=== PATIENT | male | born 1940 | race Caucasian/White ===

== ENCOUNTER → 2016-08-08 | Outpatient (CLI) | payer MEDICARE ==
--- NOTE | 2016-08-08 13:48 | XR ---
EXAMINATION TYPE: XR Hip Complete LT DATE OF EXAM: 08/08/2016 COMPARISON: NONE HISTORY: Left hip pain, fall TECHNIQUE: 2 views left hip FINDINGS: Femoral head articulates with the acetabulum. No acute fractures evident. Joint spaces pres erved. IMPRESSION: 1. Normal 2 view left hip
== END | disposition home or self-care (01) ==
LOC: RADXRMAIN 11:22
PROVIDERS: ATTEND Internal Medicine
DX: M25.552 Pain in left hip (principal)
CPT/HCPCS: 73502

== ENCOUNTER → 2016-08-26 | Outpatient (CLI) | payer MEDICARE | END | disposition home or self-care (01) | LOC: LABWHC1 09:25 | PROVIDERS: ATTEND Urology | DX: C61 Malignant neoplasm of prostate (principal) | CPT/HCPCS: 36415; 84153 ==

== ENCOUNTER → 2017-03-10 | Outpatient (CLI) | payer MEDICARE | END | disposition home or self-care (01) | LOC: LABWHC1 07:56 | PROVIDERS: ATTEND Urology | DX: C61 Malignant neoplasm of prostate (principal) | CPT/HCPCS: 36415; 84153 ==

== ENCOUNTER → 2017-08-25 | Outpatient (CLI) | payer MEDICARE | END | disposition home or self-care (01) | LOC: LABWHC1 08:55 | PROVIDERS: ATTEND Urology | DX: C61 Malignant neoplasm of prostate (principal) | CPT/HCPCS: 36415; 84153 ==

== ENCOUNTER → 2017-12-03 | Outpatient (CLI) | payer MEDICARE | END | disposition home or self-care (01) | LOC: LABWHC1 09:01 | PROVIDERS: ATTEND Urology | DX: C61 Malignant neoplasm of prostate (principal) | CPT/HCPCS: 36415; 84153; 84403 ==

== ENCOUNTER 2018-06-23 10:15 | Outpatient (CLI) | payer MEDICARE | END 2018-06-23 10:34 | disposition home or self-care (01) | LOC: LABWHC1 10:15 | PROVIDERS: ATTEND Family Medicine | DX: Z53.9 Procedure and treatment not carried out, unspecified reason (principal) ==

== ENCOUNTER → 2018-06-23 | Outpatient (CLI) | payer MEDICARE | END | disposition home or self-care (01) | LOC: LABWHC1 13:45 | PROVIDERS: ATTEND Urology | DX: C61 Malignant neoplasm of prostate (principal) | CPT/HCPCS: 36415; 84153 ==

== ENCOUNTER → 2018-12-29 | Outpatient (CLI) | payer MEDICARE | END | disposition home or self-care (01) | LOC: LABWHC1 10:46 | PROVIDERS: ATTEND Urology | DX: C61 Malignant neoplasm of prostate (principal) | CPT/HCPCS: 36415; 84153 ==

== ENCOUNTER → 2020-05-01 | Outpatient (CLI) | payer MEDICARE | END | disposition home or self-care (01) | LOC: LABWHC1 08:52 | PROVIDERS: ATTEND Urology | DX: C61 Malignant neoplasm of prostate (principal) | CPT/HCPCS: 36415; 84153 ==

== ENCOUNTER → 2020-05-22 | Outpatient (CLI) | payer MEDICARE ==
[2020-05-22 14:01] LABS: Appearance,Urine Clear (Clear); Bilirubin,Urine Negative (Negative); Blood,Urine Negative (Negative); Color,Urine Light Yellow; Glucose,Urine (UA) 4+ (Negative); Ketones,Urine Negative (Negative); Leukocyte Esterase,Urine Negative (Negative); Nitrite,Urine Negative (Negative); Protein,Urine Negative (Negative); Urobilinogen,Urine <2.0 mg/dL (<2.0)
[2020-05-22 14:07] LABS: Specific Gravity,Urine 1.004 (1.001-1.035)
[2020-05-22 19:44] LABS: HCT 37.9 % (39.6-50.0); MCHC 31.7 g/dL (32.0-37.0); MCV 91.5 fL (80.0-97.0); Mean Platelet Volume 11.6 fL (9.5-12.2); Platelet Count 226 X 10*3/uL (140-440); RBC 4.14 X 10*6/uL (4.40-5.60); RDW 13.8 % (11.5-14.5); WBC 7.95 X 10*3/uL (4.50-10.00)
[2020-05-22 22:57] LABS: Phosphorus 3.7 mg/dL (2.4-5.1)
== END | disposition home or self-care (01) ==
LOC: LABWHC1 12:41
PROVIDERS: ATTEND Internal Medicine
DX: N18.4 Chronic kidney disease, stage 4 (severe) (principal)
CPT/HCPCS: 36415; 81003; 82306; 84100; 85027

== ENCOUNTER → 2020-06-23 | Outpatient (CLI) | payer MEDICARE ==
--- NOTE | 2020-06-23 10:38 | US ---
EXAMINATION TYPE: US kidneys/renal and bladder DATE OF EXAM: 06/23/2020 COMPARISON: US 2017 CLINICAL HISTORY: N18.4 CKD Stage 4. 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 EXAM MEASUREMENTS: Right Kidney: 9.9 x 6.0 x 5.1 cm Left Kidney: 9.7 x 5.0 x 4.5 cm Post Void Residual Volume: 36.0 mL Right Kidney: thin cortex is noted; hyperechoic, parallel, calcified vessel schwartz noted in upper pole ; extracapsular hypoechoic crescent shaped fluid area seen noted bilateral renal indicative of sonogr aphic " sweat sign" for renal failure. Left Kidney: couple of renal cysts seen with larger in lower pole = 2.7 x 2.6 x 2.2cm; thin renal cor kaur is noted Bladder: wnl Bilateral Jets seen: yes Normal Post Void Residual: yes Marked cortical thinning in both kidneys. Couple of benign thin-walled cysts left kidney. No hydronep hrosis bilaterally. The urinary bladder is satisfactorily distended. Bilateral ureteral jets are see n. IMPRESSION: Evidence of chronic medical renal disease. No hydronephrosis seen bilaterally.
== END | disposition home or self-care (01) ==
LOC: RADUSWWP 09:31
PROVIDERS: ATTEND Internal Medicine
DX: N28.89 Other specified disorders of kidney and ureter (principal)
CPT/HCPCS: 76770

== ENCOUNTER → 2020-11-24 | Outpatient (CLI) | payer MEDICARE ==
[2020-11-24 21:46] LABS: African American GFR (CKD) 25.8 (60.0-200.0); Anion Gap 12.2 mmol/L (4.00-12.00); BUN/Creat Ratio 13.39 Ratio (12.00-20.00); Blood Urea Nitrogen 34.4 mg/dL (9.0-27.0); Calcium 9.2 mg/dL (8.7-10.3); Carbon Dioxide 21.7 mmol/L (21.6-31.8); Non-African American GFR(CKD) 22.3 (60.0-200.0); Potassium 4.6 mmol/L (3.5-5.5); Prostate Specific Antigen 10.4 ng/mL (0.00-6.50)
== END | disposition home or self-care (01) ==
LOC: LABWHC1 13:35
PROVIDERS: ATTEND Urology
DX: C61 Malignant neoplasm of prostate (principal); N18.30 Chronic kidney disease, stage 3 unspecified
CPT/HCPCS: 36415; 80048; 84153

== ENCOUNTER → 2021-06-12 | Outpatient (CLI) | payer MEDICARE ==
--- NOTE | 2021-06-12 13:51 | NM ---
EXAMINATION TYPE: NM bone 3 phase DATE OF EXAM: 06/12/2021 COMPARISON: Outside left foot x-ray June 01, 2021 HISTORY: Osteomyelitis per order. Left foot pain for many years involving fifth toe Triple phase bone scintigraphy was performed following the injection of 22.9 mCi Tc 99m MDP. Immedia te images and 4 hours post injection images acquired. Dynamic imaging of the bilateral ankles and fee t. FINDINGS: There is no increased radiotracer uptake to the left ankle or foot versus the opposite right side on dynamic arterial and soft tissue phase imaging. Delayed imaging shows no increased radiotracer uptake in the left ankle or foot with particular attention to the fifth toe at area of patient concern. IMPRESSION: No scintigraphic evidence of acute osteomyelitis in the left ankle or foot.
== END | disposition home or self-care (01) ==
LOC: RADNMMAIN 07:37
PROVIDERS: ATTEND Podiatrist Foot & Ankle Surgery
DX: M79.672 Pain in left foot (principal)
CPT/HCPCS: 78315; A9503

== ENCOUNTER → 2022-07-22 | Outpatient (CLI) | payer MEDICARE ==
[2022-07-22 17:42] LABS: Protein/Creatinine Ratio,Urine 0.111
[2022-07-23 02:20] LABS: % Iron Saturation 20.53; BUN/Creat Ratio 14.71 Ratio; Blood Urea Nitrogen 41.2 mg/dL; Magnesium 2.2 mg/dL; Phosphorus 3.9 mg/dL; Potassium 5.2 mmol/L
[2022-07-23 02:21] LABS: Albumin 4.2 d/dL; Calcium 9.6 mg/dL
[2022-07-23 02:30] LABS: Basophils # (A) 0.05 X 10*3/uL; Basophils % (A) 0.6 %; Eosinophils # (A) 0.21 X 10*3/uL; Eosinophils % (A) 2.5 %; HCT 44.5 %; HGB 14.4 d/dL; Lymphocytes # (A) 1.54 X 10*3/uL; Lymphocytes % (A) 18.1 %; MCH 32.6 pg; MCHC 32.4 d/dL; MCV 100.7 FL; Mean Platelet Volume 11.5 FL; Monocytes # (A) 0.91 X 10*3/uL; Monocytes % (A) 10.7 %; NRBC Per 100 WBC 0 X 10*3/uL; Neutrophils # (A) 5.76 X 10*3/uL; Neutrophils % (A) 67.9 %; Platelet Count 223 X 10*3/uL; RBC 4.42 X 10*6/uL; RDW 12.8 %; WBC 8.49 X 10*3/uL
[2022-07-23 04:44] LABS: Bilirubin,Urine Negative; Blood,Urine Negative; Color,Urine Yellow; Ketones,Urine Negative; Nitrite,Urine Negative; Specific Gravity,Urine 1.012; Urobilinogen,Urine 0.2
[2022-07-23 08:55] LABS: Appearance,Urine Clear (Clear)
== END | disposition home or self-care (01) ==
LOC: LABMAIN 15:44
PROVIDERS: ATTEND Nurse Practitioner Family
DX: N25.81 Secondary hyperparathyroidism of renal origin (principal); N18.4 Chronic kidney disease, stage 4 (severe); D50.9 Iron deficiency anemia, unspecified; E55.9 Vitamin D deficiency, unspecified; M10.9 Gout, unspecified; N39.0 Urinary tract infection, site not specified; R80.9 Proteinuria, unspecified
CPT/HCPCS: 36415; 80048; 81003; 82040; 82306; 82570; 82728; 83540; 83550; 83735; 83970; 84100; 84156; 84550; 85025

== ENCOUNTER → 2022-08-14 | Outpatient (CLI) | payer MEDICARE ==
--- NOTE | 2022-08-14 16:46 | US ---
EXAMINATION TYPE: US kidneys/renal and bladder DATE OF EXAM: 08/14/2022 COMPARISON: Renal ultrasound 06/23/2020, 01/15/2017 CLINICAL INDICATION: Male, 82 years old with history of N18.4 CHRONIC KIDNEY DISEASE, STAGE 4; CKD EXAM MEASUREMENTS: Right Kidney: 9.9x4.7x4.8 cm Left Kidney: 12.0x4.9x5.1 cm Right Kidney: cortical thinning, calcified areas seen throughout, no hydro seen Left Kidney: cortical thinning, calcified areas seen throughout, no hydro seen, largest cyst measures 2.6x2.3x2.6cm Bladder: trabeculated wall, enlarged prostate Bilateral Jets seen: Yes There is no evidence for hydronephrosis at this point in time. Cortical thinning involving both kidne ys with some cortical medullary differentiation still maintained. Left renal simple cyst identified m easuring up to 2.6 cm. Calcified areas are demonstrated within both kidneys which may represent a nod ular calculus versus vascular calcifications. The urinary bladder is anechoic with trabeculated schwartz . Bilateral ureteral jets are seen. Enlarged prostate noted measuring 6.4 x 4.7 cm. IMPRESSION: 1. No hydronephrosis. 2. Findings again compatible with known chronic medical renal disease. 3. Trabeculated urinary bladder with enlarged prostate suggesting chronic outlet obstruction. 4. Bilateral renal calcifications which may represent nonobstructive calculi versus vascular calcific ations.
== END | disposition home or self-care (01) ==
LOC: RADUSWWP 15:00
PROVIDERS: ATTEND Internal Medicine Nephrology
DX: N18.4 Chronic kidney disease, stage 4 (severe) (principal); N40.0 Benign prostatic hyperplasia without lower urinary tract symptoms; N28.89 Other specified disorders of kidney and ureter
CPT/HCPCS: 76770

== ENCOUNTER 2024-03-11 11:40 | Emergency (ER) | payer MEDICARE ==
[2024-03-11 11:49] VITALS: RESP 18; TEMP 97.8
[2024-03-11 12:13] LABS: Basophils % (A) 0 %; Eosinophils # (A) 0.3 k/uL (0-0.7); Eosinophils % (A) 3 %; HCT 44.9 % (39.0-53.0); HGB 14.4 gm/dL (13.0-17.5); Lymphocytes # (A) 1.5 k/uL (1.0-4.8); Lymphocytes % (A) 18 %; MCH 31.9 pg (25.0-35.0); MCHC 32.1 g/dL (31.0-37.0); MCV 99.4 fL (80.0-100.0); Mean Platelet Volume 7.7; Monocytes # (A) 0.7 k/uL (0-1.0); Monocytes % (A) 8 %; Neutrophils % (A) 70 %; Platelet Count 207 k/uL (150-450); RBC 4.52 m/uL (4.30-5.90); RDW 12.8 % (11.5-15.5); WBC 8.6 k/uL (3.8-10.6)
[2024-03-11 12:23] LABS: ALT 17 U/L (4-49); AST 20 U/L (17-59); African American GFR (CKD) 25 (>60 ml/min/1.73 sqM); Albumin 3.7 g/dL (3.5-5.0); Alkaline Phosphatase 54 U/L (38-126); Anion Gap 9 mmol/L; Blood Urea Nitrogen 32 mg/dL (9-20); Calcium 8.9 mg/dL (8.4-10.2); Carbon Dioxide 24 mmol/L (22-30); Chloride 102 mmol/L (98-107); Glucose 207 mg/dL (74-99); Non-African American GFR(CKD) 21 (>60 ml/min/1.73 sqM); Potassium 4.9 mmol/L (3.5-5.1); Sodium 135 mmol/L (137-145); Total Bilirubin 0.7 mg/dL (0.2-1.3); Total Protein 6.6 g/dL (6.3-8.2)
--- NOTE | 2024-03-11 12:25 | XR ---
EXAMINATION TYPE: XR chest 2V DATE OF EXAM: 03/11/2024 12:13 PM COMPARISON: Chest radiographs from 11/18/2011 CLINICAL INDICATION: Male, 83 years old with history of syncope; [facility] TECHNIQUE: XR chest 2V Frontal and lateral views of the chest. FINDINGS: Lungs/Pleura: There is no evidence of pleural effusion, focal consolidation, or pneumothorax. Pulmonary vascularity: Unremarkable. Heart/mediastinum: Cardiomediastinal silhouette is unremarkable. Musculoskeletal: No acute osseous pathology. Midline sternotomy wires are noted. IMPRESSION: No acute cardiopulmonary disease/process. [facility], , 03/11/2024 12:23 PM
--- NOTE | 2024-03-11 12:32 | CT ---
EXAMINATION TYPE: CT brain wo con DATE OF EXAM: 03/11/2024 COMPARISON: CT 2012 CLINICAL INDICATION: Male, 83 years old with history of AMS; PHH, Syncope TECHNIQUE: CT scan of the head is performed without contrast. CT DLP: 1096.4 mGycm Automated exposure control for dose reduction was used. FINDINGS: Exam is suboptimal with motion. There is no definitive acute intracranial hemorrhage or mi dline shift identified. There is moderate diffuse ventricular and sulcal prominence more prominent fr om prior. There is moderate low-attenuation in the periventricular white matter consistent with drum stock clerk [place] small vessel ischemic change prominent from prior. The calvarium is intact. Bilateral aphakia is seen. Mild mucosal thickening involving the visualized portion of the left maxillary sinus. IMPRESSION: No acute intracranial hemorrhage or midline shift. There is moderate diffuse age-relate d cerebral atrophy and chronic small vessel ischemic change now present. [facility], , 03/11/2024 12:29 PM
[2024-03-11 12:33] LABS: INR 1.1 (<1.2); Prothrombin Time 11.6 sec (10.0-12.5)
[2024-03-11 12:36] LABS: Appearance,Urine Clear (Clear); Bilirubin,Urine Negative (Negative); Blood,Urine Negative (Negative); Color,Urine Colorless; Glucose,Urine (UA) 3+ (Negative); Ketones,Urine Negative (Negative); Leukocyte Esterase,Urine Negative (Negative); Nitrite,Urine Negative (Negative); Protein,Urine Negative (Negative); Specific Gravity,Urine 1.009 (1.001-1.035); Urobilinogen,Urine <2.0 mg/dL (<2.0)
[2024-03-11 12:41] LABS: Partial Thromboplastin Time 19.8 sec (22.0-30.0)
--- NOTE | 2024-03-11 13:25 | ED ---
General Adult HPI - General Chief complaint: Syncope Stated complaint: syncope Time Seen by Provider: 03/11/24 11:44 Source: patient, EMS, RN notes reviewed Mode of arrival: EMS Limitations: altered mental status - History of Present Illness Initial comments: 83-year-old male presents emergency department via EMS chief complaint of syncopal episode. Patient brother was having his toenails cut by his son in which she then passed out he did not fall and strike his head. Patient has no complaints currently denies chest pain shortness of breath back pain extremity weakness no nausea vomit no fevers or chills no cough or cold-like symptoms. Patient does have some confusion unclear if this is his baseline there is no current family. - Related Data Home Medications Medication Instructions Recorded Confirmed Furosemide [Lasix] 40 mg PO DAILY 03/11/24 03/11/24 Glimepiride [Amaryl] 1 mg PO DAILY 03/11/24 03/11/24 Ketorolac 0.5% Ophth Soln [Acular 1 drops LEFT EYE DAILY 03/11/24 03/11/24 0.5%] Latanoprost [Latanoprost 0.005%] 1 drop BOTH EYES HS 03/11/24 03/11/24 Losartan [Cozaar] 12.5 mg PO DAILY 03/11/24 03/11/24 Metoprolol Tartrate [Lopressor] 25 mg PO DAILY 03/11/24 03/11/24 Pioglitazone [Actos] 45 mg PO DAILY 03/11/24 03/11/24 calcitrioL [Rocaltrol] 0.25 mcg PO Q7D 03/11/24 03/11/24 methocarbamoL [Robaxin] 500 mg PO Q12H PRN 03/11/24 03/11/24 prednisoLONE ACETATE 1% OPHTH 1 drops LEFT EYE DAILY 03/11/24 03/11/24 [Pred Forte 1%] sitaGLIPtin [Januvia] 100 mg PO DAILY 03/11/24 03/11/24 Allergies Allergy/AdvReac Type Severity Reaction Status Date / Time No Known Allergies Allergy Verified 03/11/24 11:47 Review of Systems ROS Statement: Those systems with pertinent positive or pertinent negative responses have been documented in the HPI. ROS Other: All systems not noted in ROS Statement are negative. Past Medical History Past Medical History: Diabetes Mellitus History of Any Multi-Drug Resistant Organisms: None Reported Past Anesthesia/Blood Transfusion Reactions: No Reported Reaction Past Psychological History: No Psychological Hx Reported Smoking Status: Never smoker Past Drug Use History: None Reported General Exam Limitations: altered mental status General appearance: alert, in no apparent distress Head exam: Present: atraumatic, normocephalic, normal inspection Eye exam: Present: normal appearance, PERRL, EOMI. Absent: scleral icterus, conjunctival injection, periorbital swelling ENT exam: Present: normal exam, mucous membranes moist Neck exam: Present: normal inspection, full ROM. Absent: tenderness, meningism us, lymphadenopathy Respiratory exam: Present: normal lung sounds bilaterally. Absent: respiratory distress, wheezes, rales, rhonchi, stridor Cardiovascular Exam: Present: normal rhythm, bradycardia, normal heart sounds. Absent: systolic murmur, diastolic murmur, rubs, gallop, clicks GI/Abdominal exam: Present: soft, normal bowel sounds. Absent: distended, tenderness, guarding, rebound, rigid Back exam: Present: normal inspection, full ROM. Absent: tenderness Neurological exam: Present: alert, CN II-XII intact, reflexes normal. Absent: oriented X3, motor sensory deficit Course Vital Signs 03/11/24 03/11/24 03/11/24 11:42 13:11 13:24 Temperature 97.8 F Pulse Rate 56 L 50 L Respiratory 18 18 Rate Blood Pressure 134/82 131/68 Blood Pressure 129/74 [Right Arm Sitting] Blood Pressure 113/84 [Right Arm Standing] Blood Pressure 130/62 [Right Arm Supine] O2 Sat by Pulse 98 99 Oximetry EKG Findings - EKG Comments: EKG Findings:: EKG performed at 11: 55 sinus bradycardia with first-degree block rate of 49 ND 224 QRS 92 QT/QTc 421/391 - EKG Results: EKG: interpreted by ERMD Medical Decision Making - Medical Decision Making Was pt. sent in by a medical professional or institution (, PA, CRIME LAB TECHNICIAN, urgent care, hospital, or custodial...) When possible be specific @ -No Did you speak to anyone other than the patient for history (EMS, parent, family, police, friend...)? What history was obtained from this source @ -Family providing past medical history and current baseline Did you review nursing and triage notes (agree or disagree)? Why? @ -I reviewed and agree with nursing and triage notes Were old charts reviewed (outside hosp., previous admission, EMS record, old EKG, old radiological studies, urgent care reports/EKG's, custodial records)? Report findings @ -No old charts were reviewed Differential Diagnosis (chest pain, altered mental status, abdominal pain women, abdominal pain men, vaginal bleeding, weakness, fever, dyspnea, syncope, headache, dizziness, GI bleed, back pain, seizure, CVA, palpatations, mental health, musculoskeletal)? @ -Differential Syncope: Valvular disease, hypertrophic cardiomyopathy, pulmonary embolism, tamponade, tachycardia, bradycardia, VT, hypovolemia, hemorrhage, dissection, anemia, intracranial hemorrhage, seizure, hypoglycemia, carbon monoxide poisoning, this is not meant to be an all-inclusive list. EKG interpreted by me (3pts min.). @ -As above X-rays interpreted by me (1pt min.). @ -Chest 2 view no acute cardiopulmonary process CT interpreted by me (1pt min.). @ -CT brain showing chronic disease no acute process no intracranial hemorrhage U/S interpreted by me (1pt. min.). @ -None done What testing was considered but not performed or refused? (CT, X-rays, U/S, labs)? Why? @ -None What meds were considered but not given or refused? Why? @ -None Did you discuss the management of the patient with other professionals (prof michael i.e. , PA, CRIME LAB TECHNICIAN, lab, RT, psych nurse, hospital social worker, lime kiln operator, teacher, cavalry officer, rn case mgr)? Give summary @ -No Was smoking cessation discussed for >3mins.? @ -No Was critical care preformed (if so, how long)? @ -No Were there social determinants of health that impacted care today? How? (Homelessness, low income, unemployed, alcoholism, drug addiction, transportation, low edu. Level, literacy, decrease access to med. care, senior living, rehab)? @ -No Was there de-escalation of care discussed even if they declined (Discuss DNR or withdrawal of care, Hospice)? DNR status @ -No What co-morbidities impacted this encounter? (DM, HTN, Smoking, COPD, CAD, Cancer, CVA, ARF, Chemo, Hep., AIDS, mental health diagnosis, sleep apnea, morbid obesity)? @ -None Was patient admitted / discharged? Hospital course, mention meds given and route, prescriptions, significant lab abnormalities, going to OR and other pertinent info. @ -Discharge patient's family was updated, they did comment states patient is at his baseline they have no concerns. Patient has chronic kidney disease. Patient has no complaints himself will be discharged in stable condition. Undiagnosed new problem with uncertain prognosis? @ -No Drug Therapy requiring intensive monitoring for toxicity (Heparin, Nitro, Insuli n, Cardizem)? @ -No Were any procedures done? @ -No Diagnosis/symptom? @ -syncope, dementia chronic kidney disease Acute, or Chronic, or Acute on Chronic? @ -acute Uncomplicated (without systemic symptoms) or Complicated (systemic symptoms)? @ -complicated Side effects of treatment? @ -No Exacerbation, Progression, or Severe Exacerbation? @ -No Poses a threat to life or bodily function? How? (Chest pain, USA, VT, pneumonia, PE, COPD, DKA, ARF, appy, cholecystitis, CVA, Diverticulitis, Homicidal, Suicidal, threat to staff... and all critical care pts) @ -No - Lab Data Result diagrams: 03/11/24 11:55 03/11/24 11:55 Lab Results 03/11/24 03/11/24 03/11/24 Range/Units 11:55 11:55 11:55 WBC 8.6 (3.8-10.6) k/uL RBC 4.52 (4.30-5.90) m/uL Hgb 14.4 (13.0-17.5) gm/dL Hct 44.9 (39.0-53.0) % MCV 99.4 (80.0-100.0) fL MCH 31.9 (25.0-35.0) pg MCHC 32.1 (31.0-37.0) g/dL RDW 12.8 (11.5-15.5) % Plt Count 207 (150-450) k/uL MPV 7.7 Neutrophils % 70 % Lymphocytes % 18 % Monocytes % 8 % Eosinophils % 3 % Basophils % 0 % Neutrophils # 6.0 (1.3-7.7) k/uL Lymphocytes # 1.5 (1.0-4.8) k/uL Monocytes # 0.7 (0-1.0) k/uL Eosinophils # 0.3 (0-0.7) k/uL Basophils # 0.0 (0-0.2) k/uL PT 11.6 (10.0-12.5) sec INR 1.1 (<1.2) APTT 19.8 L (22.0-30.0) sec Sodium 135 L (137-145) mmol/L Potassium 4.9 (3.5-5.1) mmol/L Chloride 102 (98-107) mmol/L Carbon Dioxide 24 (22-30) mmol/L Anion Gap 9 mmol/L BUN 32 H (9-20) mg/dL Creatinine 2.61 H (0.66-1.25) mg/dL Est GFR (CKD-EPI)AfAm 25 (>60 ml/min/1.73 sqM) Est GFR (CKD-EPI)NonAf 21 (>60 ml/min/1.73 sqM) Glucose 207 H (74-99) mg/dL Calcium 8.9 (8.4-10.2) mg/dL Magnesium 2.0 (1.6-2.3) mg/dL Total Bilirubin 0.7 (0.2-1.3) mg/dL AST 20 (17-59) U/L ALT 17 (4-49) U/L Alkaline Phosphatase 54 (38-126) U/L Troponin I (0.000-0.034) ng/mL Total Protein 6.6 (6.3-8.2) g/dL Albumin 3.7 (3.5-5.0) g/dL Urine Color Urine Appearance (Clear) Urine pH (5.0-8.0) Ur Specific [place] (1.001-1.035) Urine Protein (Negative) Urine Glucose (UA) (Negative) Urine Ketones (Negative) Urine Blood (Negative) Urine Nitrite (Negative) Urine Bilirubin (Negative) Urine Urobilinogen (<2.0) mg/dL Ur Leukocyte Esterase (Negative) 03/11/24 03/11/24 Range/Units 11:55 12:21 WBC (3.8-10.6) k/uL RBC (4.30-5.90) m/uL Hgb (13.0-17.5) gm/dL Hct (39.0-53.0) % MCV (80.0-100.0) fL MCH (25.0-35.0) pg MCHC (31.0-37.0) g/dL RDW (11.5-15.5) % Plt Count (150-450) k/uL MPV Neutrophils % % Lymphocytes % % Monocytes % % Eosinophils % % Basophils % % Neutrophils # (1.3-7.7) k/uL Lymphocytes # (1.0-4.8) k/uL Monocytes # (0-1.0) k/uL Eosinophils # (0-0.7) k/uL Basophils # (0-0.2) k/uL PT (10.0-12.5) sec INR (<1.2) APTT (22.0-30.0) sec Sodium (137-145) mmol/L Potassium (3.5-5.1) mmol/L Chloride (98-107) mmol/L Carbon Dioxide (22-30) mmol/L Anion Gap mmol/L BUN (9-20) mg/dL Creatinine (0.66-1.25) mg/dL Est GFR (CKD-EPI)AfAm (>60 ml/min/1.73 sqM) Est GFR (CKD-EPI)NonAf (>60 ml/min/1.73 sqM) Glucose (74-99) mg/dL Calcium (8.4-10.2) mg/dL Magnesium (1.6-2.3) mg/dL Total Bilirubin (0.2-1.3) mg/dL AST (17-59) U/L ALT (4-49) U/L Alkaline Phosphatase (38-126) U/L Troponin I <0.012 (0.000-0.034) ng/mL Total Protein (6.3-8.2) g/dL Albumin (3.5-5.0) g/dL Urine Color Colorless Urine Appearance Clear (Clear) Urine pH 5.0 (5.0-8.0) Ur Specific [place] 1.009 (1.001-1.035) Urine Protein Negative (Negative) Urine Glucose (UA) 3+ H (Negative) Urine Ketones Negative (Negative) Urine Blood Negative (Negative) Urine Nitrite Negative (Negative) Urine Bilirubin Negative (Negative) Urine Urobilinogen <2.0 (<2.0) mg/dL Ur Leukocyte Esterase Negative (Negative) Disposition Clinical Impression: Syncope, Dementia, CKD (chronic kidney disease) Disposition: HOME SELF-CARE Condition: Stable Instructions (If sedation given, give patient instructions): Syncope (ED) Additional Instructions: Please return to the Emergency Department if symptoms worsen or any other concerns. Is patient prescribed a controlled substance at d/c from ED?: No Referrals: Luciano Cooney MD [Primary Care Provider] - 1-2 days Time of Disposition: 13:59
[2024-03-11 13:36] VITALS: PULSE 50
[2024-03-11 14:10] VITALS: BP 123/77
== END 2024-03-11 14:09 | disposition home or self-care (01) ==
LOC: EC 11:40
DX: N18.9 Chronic kidney disease, unspecified (principal); R55 Syncope and collapse; F03.90 Unspecified dementia, unspecified severity, without behavioral disturbance, psychotic disturbance, mood disturbance, and anxiety
CPT/HCPCS: 36415; 70450; 71046; 80053; 81003; 83735; 84484; 85025; 85610; 85730; 93005; 99285

== ENCOUNTER 2024-04-29 18:03 | Inpatient (IN) | payer MEDICARE ==
--- NOTE | 2024-04-29 18:15 | ED ---
General Adult HPI - General Stated complaint: left side weakness Time Seen by Provider: 04/29/24 18:11 Source: patient, family Mode of arrival: wheelchair Limitations: no limitations - History of Present Illness Initial comments: Patient is an 84-year-old male presenting to the emergency department with left- sided weakness. Onset of symptoms was around 3 or 4 this morning. Patient was well when he went to bed last night. Patient family has noticed left-sided facial weakness and left arm and left leg weakness. No confusion. Patient does have slurred speech. Patient has a difficult time describing his symptoms and majority of history comes from family. - Related Data Home Medications Medication Instructions Recorded Confirmed Glimepiride [Amaryl] 1 mg PO DAILY 03/11/24 04/29/24 Ketorolac 0.5% Ophth Soln [Acular 1 drops LEFT EYE DAILY 03/11/24 04/29/24 0.5%] Latanoprost [Latanoprost 0.005%] 1 drop BOTH EYES HS 03/11/24 04/29/24 Losartan [Cozaar] 12.5 mg PO DAILY 03/11/24 04/29/24 Metoprolol Tartrate [Lopressor] 25 mg PO DAILY 03/11/24 04/29/24 Pioglitazone [Actos] 45 mg PO DAILY 03/11/24 04/29/24 calcitrioL [Rocaltrol] 0.25 mcg PO TH 03/11/24 04/29/24 methocarbamoL [Robaxin] 500 mg PO Q12H PRN 03/11/24 04/29/24 prednisoLONE ACETATE 1% OPHTH 1 drop LEFT EYE DAILY 03/11/24 04/29/24 [Pred Forte 1%] sitaGLIPtin [Januvia] 100 mg PO DAILY 03/11/24 04/29/24 Allergies Allergy/AdvReac Type Severity Reaction Status Date / Time No Known Allergies Allergy Verified 04/29/24 19:32 Review of Systems ROS Statement: Those systems with pertinent positive or pertinent negative responses have been documented in the HPI. ROS Other: All systems not noted in ROS Statement are negative. Constitutional: Denies: fever Eyes: Denies: eye pain ENT: Denies: ear pain Respiratory: Denies: cough Cardiovascular: Denies: chest pain Endocrine: Denies: fatigue Gastrointestinal: Denies: abdominal pain Musculoskeletal: Denies: back pain Neurological: Reports: as per HPI, weakness. Denies: headache Past Medical History Past Medical History: Diabetes Mellitus History of Any Multi-Drug Resistant Organisms: None Reported Past Anesthesia/Blood Transfusion Reactions: No Reported Reaction Past Psychological History: No Psychological Hx Reported Smoking Status: Never smoker Past Drug Use History: None Reported General Exam Limitations: no limitations General appearance: alert, in no apparent distress Head exam: Present: normocephalic Eye exam: Present: normal appearance, PERRL, EOMI ENT exam: Present: normal oropharynx Neck exam: Present: normal inspection Respiratory exam: Present: normal lung sounds bilaterally Cardiovascular Exam: Present: regular rate, normal rhythm GI/Abdominal exam: Present: soft. Absent: tenderness Extremities exam: Present: normal inspection Neurological exam: Present: alert Expanded Neurological exam: Present: other (Slurred speech) Patient oriented to: Present: person, place. Absent: time Cranial nerves: EOM's Intact: Normal, Facial Sensation: Normal, Facial Palsy with Forehead Movement: Abnormal Left (Left facial weakness that does not involve the forehead) Sensory exam: Upper Extremity Light Touch: Normal, Lower Extremity Light Touch: Normal Motor strength exam: RUE: 5, LUE: 5, RLE: 4, LLE: 2/1 Eye Response: (4) open spontaneously Motor Response: (6) obeys commands Verbal Response: (4) confused conversation Psychiatric exam: Present: normal affect, normal mood Skin exam: Present: normal color Course Vital Signs 04/29/24 04/29/24 04/29/24 18:10 18:34 18:41 Temperature 98.4 F Pulse Rate 83 68 Respiratory 18 15 14 Rate Blood Pressure 143/85 141/70 O2 Sat by Pulse 99 97 Oximetry 04/29/24 18:57 Temperature Pulse Rate 77 Respiratory 15 Rate Blood Pressure 128/66 O2 Sat by Pulse 99 Oximetry EKG Findings - EKG Results: EKG: interpreted by ERMD (First-degree AV block with a TX of 226.), sinus rhythm, normal axis, normal QRS, normal ST/T Medical Decision Making - Medical Decision Making Case was discussed with neuro Dr. Serrato who agrees not a TNK patient. Risks are felt to outweigh the benefit. Secondary to onset greater than 4.5 hours. Was pt. sent in by a medical professional or institution (, PA, HOSPITAL HOUSEKEEPER, urgent care, hospital, or senior living...) When possible be specific @ -No Did you speak to anyone other than the patient for history (EMS, parent, family, police, friend...)? What history was obtained from this source @ -Family is present and provides history as patient is a poor historian Did you review nursing and triage notes (agree or disagree)? Why? @ -I reviewed and agree with nursing and triage notes Were old charts reviewed (outside hosp., previous admission, EMS record, old EKG, old radiological studies, urgent care reports/EKG's, senior living records)? Report findings @ -No old charts were reviewed Differential Diagnosis (chest pain, altered mental status, abdominal pain women, abdominal pain men, vaginal bleeding, weakness, fever, dyspnea, syncope, headache, dizziness, GI bleed, back pain, seizure, CVA, palpatations, mental health, musculoskeletal)? @ -Differential Weakness: Hypoglycemia, shock, sepsis, hyponatremia, anemia, infection, MD, ETOH, adverse medicine reaction, overdose, stroke, this is not meant to be an all-inclusive list. EKG interpreted by me (3pts min.). @ -As above X-rays interpreted by me (1pt min.). @ -Chest x-ray does not reveal acute abnormality CT interpreted by me (1pt min.). @ -CT scan of the brain has concern for infarct right internal capsule U/S interpreted by me (1pt. min.). @ -None done What testing was considered but not performed or refused? (CT, X-rays, U/S, labs)? Why? @ -None What meds were considered but not given or refused? Why? @ -None Did you discuss the management of the patient with other professionals (professionals i.e. , PA, HOSPITAL HOUSEKEEPER, lab, RT, psych nurse, social work professor, urology nurse, teacher, commissioned police officer, case management director)? Give summary @ -Sound physician Dr. Huff to admit covering Dr. Almodovar Was smoking cessation discussed for >3mins.? @ -No Was critical care preformed (if so, how long)? @ -31 minutes critical care time Were there social determinants of health that impacted care today? How? (Homelessness, low income, unemployed, alcoholism, drug addiction, transportation, low edu. Level, literacy, decrease access to med. care, snf, rehab)? @ -No Was there de-escalation of care discussed even if they declined (Discuss DNR or withdrawal of care, Hospice)? DNR status @ -No What co-morbidities impacted this encounter? (DM, HTN, Smoking, COPD, CAD, Cancer, CVA, ARF, Chemo, Hep., AIDS, mental health diagnosis, sleep apnea, morbid obesity)? @ -None Was patient admitted / discharged? Hospital course, mention meds given and route, prescriptions, significant lab abnormalities, going to OR and other pertinent info. @ -Patient presents with left-sided deficits. Not a candidate for TNKase secondary to greater than 4.5 hours. Patient will be admitted with neurology consult. Patient reevaluated. Patient and family updated. Admission orders written. Undiagnosed new problem with uncertain prognosis? @ -No Drug Therapy requiring intensive monitoring for toxicity (Heparin, Nitro, Insulin, Cardizem)? @ -No Were any procedures done? @ -No Diagnosis/symptom? @ -CVA Acute, or Chronic, or Acute on Chronic? @ -Acute Uncomplicated (without systemic symptoms) or Complicated (systemic symptoms)? @ -Default Side effects of treatment? @ -No Exacerbation, Progression, or Severe Exacerbation? @ -No Poses a threat to life or bodily function? How? (Chest pain, USA, MD, pneumonia, PE, COPD, DKA, ARF, appy, cholecystitis, CVA, Diverticulitis, Homicidal, Suicidal, threat to staff... and all critical care pts) @ -Threat to neurological function - Lab Data Result diagrams: 04/29/24 18:34 04/29/24 18:34 Lab Results 04/29/24 04/29/24 04/29/24 Range/Units 18:34 18:34 18:44 WBC 10.3 (3.8-10.6) k/uL RBC 4.70 (4.30-5.90) m/uL Hgb 14.7 (13.0-17.5) gm/dL Hct 46.5 (39.0-53.0) % MCV 99.0 (80.0-100.0) fL MCH 31.3 (25.0-35.0) pg MCHC 31.6 (31.0-37.0) g/dL RDW 13.4 (11.5-15.5) % Plt Count 231 (150-450) k/uL MPV 8.6 Neutrophils % 75 % Lymphocytes % 14 % Monocytes % 6 % Eosinophils % 3 % Basophils % 0 % Neutrophils # 7.8 H (1.3-7.7) k/uL Lymphocytes # 1.5 (1.0-4.8) k/uL Monocytes # 0.6 (0-1.0) k/uL Eosinophils # 0.3 (0-0.7) k/uL Basophils # 0.0 (0-0.2) k/uL Sodium 135 L (137-145) mmol/L Potassium 4.7 (3.5-5.1) mmol/L Chloride 102 (98-107) mmol/L Carbon Dioxide 21 L (22-30) mmol/L Anion Gap 12 mmol/L BUN 41 H (9-20) mg/dL Creatinine 2.61 H (0.66-1.25) mg/dL Est GFR (CKD-EPI)AfAm 25 (>60 ml/min/1.73 sqM) Est GFR (CKD-EPI)NonAf 21 (>60 ml/min/1.73 sqM) Glucose 191 H (74-99) mg/dL POC Glucose (mg/dL) 176 H (70-110) mg/dL POC Glu School Administrator ID [place] Alexandra Calcium 9.4 (8.4-10.2) mg/dL Total Bilirubin 0.9 (0.2-1.3) mg/dL AST 27 (17-59) U/L ALT 21 (4-49) U/L Alkaline Phosphatase 58 (38-126) U/L Creatine Kinase 217 H (55-170) U/L Total Protein 7.6 (6.3-8.2) g/dL Albumin 4.3 (3.5-5.0) g/dL Disposition Clinical Impression: Cerebrovascular accident (CVA) Disposition: ADMITTED IP TO THIS HOSP Condition: Serious Is patient prescribed a controlled substance at d/c from ED?: No Referrals: Luciano Cooney MD [Primary Care Provider] - 1-2 days Time of Disposition: 20:21
[2024-04-29 18:46] LABS: Glucose,Whole Blood 176 mg/dL (70-110)
[2024-04-29 18:47] LABS: Basophils % (A) 0 %; Eosinophils # (A) 0.3 k/uL (0-0.7); Eosinophils % (A) 3 %; HCT 46.5 % (39.0-53.0); HGB 14.7 gm/dL (13.0-17.5); Lymphocytes # (A) 1.5 k/uL (1.0-4.8); Lymphocytes % (A) 14 %; MCH 31.3 pg (25.0-35.0); MCHC 31.6 g/dL (31.0-37.0); Mean Platelet Volume 8.6; Monocytes # (A) 0.6 k/uL (0-1.0); Monocytes % (A) 6 %; Neutrophils # (A) 7.8 k/uL (1.3-7.7); Neutrophils % (A) 75 %; Platelet Count 231 k/uL (150-450); RDW 13.4 % (11.5-15.5); WBC 10.3 k/uL (3.8-10.6)
--- NOTE | 2024-04-29 18:51 | CT ---
EXAMINATION TYPE: CT brain wo con DATE OF EXAM: 04/29/2024 COMPARISON: NONE CLINICAL INDICATION: Male, 84 years old with history of Neuro deficit, acute, stroke suspected, TECHNIQUE: CT scan of the head is performed without contrast. CT DLP: 1220 mGycm. Automated Exposure Control for Dose Reduction was Utilized. FINDINGS: There is no acute intracranial hemorrhage or midline shift identified. There is moderate diffuse ventricular and sulcal prominence redemonstrated. There is moderate low-attenuation in the p eriventricular white matter redemonstrated. There is however new 1.6 cm vague area of low density in the right internal capsule extending to the central basal ganglia axial images 22 through 25. Promine nt soft tissue density consistent with cerumen in the left external auditory canal is redemonstrated. The paranasal sinuses are clear. Bilateral aphakia is redemonstrated. IMPRESSION: Probable evolving acute infarct right Internal capsule extending into the central basal ganglia. Consider MRI for confirmation. No acute intracranial hemorrhage or midline shift. [facility], , 04/29/2024 6:48 PM
--- NOTE | 2024-04-29 18:57 | CT ---
EXAMINATION TYPE: CT angio head neck DATE OF EXAM: 04/29/2024 COMPARISON: NONE CLINICAL INDICATION: Male, 84 years old with history of Neuro deficit, acute, stroke suspected, left sided facial droop and weakness. fall x few days ago., TECHNIQUE: CTA scan of the head and neck is performed with IV Contrast, patient injected with 65ml m L of Isovue 370, axial images are obtained, coronal and sagittal reformatted images are reviewed. 3D reconstructed images are created on an independent workstation and reviewed. NASCET criteria was used in interpretation of this exam? CT DLP: 540.2 mGycm. Automated Exposure Control for Dose Reduction was Utilized. FINDINGS: HEAD: Patent bilateral posterior communicating arteries . Hypoplastic right A1 segment with filling of the right A2 segment due to patent anterior communicating artery. No aneurysm is evident. Dural sinuses: Patent. CTA NECK: Right Carotid System: The common carotid artery and external carotid artery are patent. The carotid bifurcation demonstrate s no evidence of hemodynamically significant stenosis. Mild to moderate peripheral plaque in the dist al common carotid artery and carotid bulb extending into the proximal internal carotid artery is seen The remaining portions of the internal carotid artery demonstrate normal size without significant na rrowing. Moderate to severe calcified plaque distally is present. Difficult to exclude significant st enosis. Left Carotid System: The common carotid artery and external carotid artery are patent. The carotid bifurcation demonstrate s no evidence of hemodynamically significant stenosis. The remaining portions of the internal carotid artery demonstrate normal size without significant narrowing. Vertebral arteries are patent without evidence hemodynamically significant stenosis. Right vertebral artery is dominant. There is a three-vessel aortic arch. The origins of the great vessels are patent. No evidence of hemo dynamically significant stenosis. Post-CABG changes are partially imaged. There are large anterior osteophytes in the mid to lower cerv ical spine. IMPRESSION: No evidence of large vessel occlusion or aneurysm at the level of [place]. No any evidence o f significant stenosis at the carotid bifurcations. Severe calcified plaque distal right internal c arotid artery. Cannot exclude significant stenosis at this level. [facility], , 04/29/2024 6:54 PM
[2024-04-29 19:01] LABS: ALT 21 U/L (4-49); AST 27 U/L (17-59); African American GFR (CKD) 25 (>60 ml/min/1.73 sqM); Albumin 4.3 g/dL (3.5-5.0); Alkaline Phosphatase 58 U/L (38-126); Anion Gap 12 mmol/L; Blood Urea Nitrogen 41 mg/dL (9-20); Calcium 9.4 mg/dL (8.4-10.2); Carbon Dioxide 21 mmol/L (22-30); Chloride 102 mmol/L (98-107); Creatine Kinase 217 U/L (55-170); Glucose 191 mg/dL (74-99); Non-African American GFR(CKD) 21 (>60 ml/min/1.73 sqM); Potassium 4.7 mmol/L (3.5-5.1); Sodium 135 mmol/L (137-145); Total Bilirubin 0.9 mg/dL (0.2-1.3); Total Protein 7.6 g/dL (6.3-8.2)
[2024-04-29] MEDS: SODIUM CHLORIDE 0.9% 500 ML 500 ML IV STA (19:42)
--- NOTE | 2024-04-29 19:53 | XR ---
EXAMINATION TYPE: XR chest 2V DATE OF EXAM: 04/29/2024 CLINICAL INDICATION: Male, 84 years old with history of altered mental status, TECHNIQUE: Frontal and lateral views of the chest are obtained. COMPARISON: Chest x-ray March 11, 2024 FINDINGS: Overlying Sternal wires and mediastinal clips are redemonstrated. Persistent cardiomegaly. There is no focal air space opacity, pleural effusion, or pneumothorax seen. Bridging osteophytes in the thoracic spine again seen. IMPRESSION: Cardiomegaly without acute pulmonary process. [facility], , 04/29/2024 7:50 PM
[2024-04-29] MEDS: SODIUM CHLORIDE 0.9% 1,000 ML IV STA (20:16)
[2024-04-29 20:38] LABS: Partial Thromboplastin Time 24.6 sec (22.0-30.0); Prothrombin Time 11.2 sec (10.0-12.5)
[2024-04-29] MEDS: SODIUM CHLORIDE 0.9% 1,000 ML IV SCH (22:08)
[2024-04-29] MEDS: LATANOPROST 0.005% OPHTH DROPS 2.5 ML BTL BOTH EYES SCH (22:08)
[2024-04-29] MEDS: ATORVASTATIN 80 MG TAB PO SCH (22:08)
[2024-04-29] MEDS: methocarbamoL 500 MG TAB PO PRN (22:09)
[2024-04-29] MEDS: ASPIRIN 325 MG TAB PO STA (22:09)
[2024-04-29 22:13] LABS: Glucose,Whole Blood 121 mg/dL (70-110)
--- NOTE | 2024-04-29 23:42 | P.HPIM ---
History of Present Illness H&P Date: 04/29/24 Patient is a 84-year-old male with type 2 diabetes, CAD s/p CABG presenting with left-sided weakness. Patient accompanied by family, majority of history obtained from family. They state that his onset of symptoms were as around 34 AM this morning. Patient's son says that he normally gets up in the middle the night to urinate, and was at that time where he noticed some left-sided facial weakness and left arm and leg weakness along with slurred speech. Denies any confusion or any previous hist ory of stroke. Patient denies any fever, chills, headache, dizziness, chest pain, heart palpitation, shortness of breath, nausea, vomiting, diarrhea, abdominal pain, trauma. EKG independently interpreted displaying sinus rhythm with first-degree AV block, rate 70 bpm, QTc 391 ms, HI interval 226 ms CXR independently interpreted displaying cardiomegaly, no acute cardiopulmonary process CT angio head and neck displaying no evidence of large vessel occlusion or aneurysm at the level of the [place], no evidence of significant stenosis at the carotid bifurcations, severe calcified plaque distal mid right internal carotid artery Brain CT displaying probable evolving acute infarct right internal capsule extending to the central basal ganglia, no acute intracranial hemorrhage or midline shift T98.4 F, HI 83, RR 18, BP 143/85, O2 sat 99% on room air Review of systems: Pertinent positives and negatives as discussed in HPI, a complete review of systems was performed and all other systems are negative. Physical examination: Vital signs reviewed General: non toxic, no distress, appears at stated age, well nourished Derm: no unusual rashes/lesions, warm Head: atraumatic, normocephalic, symmetric Eyes: EOMI, anicteric sclera, pupils equal round reactive to light ENT: Nose and ears atraumatic Mouth: no lip lesion, mucus membranes moist Cardiovascular: S1S2 reg, no murmur, positive dorsalis pedis pulse bilateral, no edema Lungs: CTA bilateral, no rhonchi, no rales, no accessory muscle use Abdominal: soft, nontender to palpation, no guarding Neuro: Left-sided facial palsy that does not involve the forehead, left upper and lower extremity weakness, slurred speech Psych: Alert, oriented to person, place, and time Assessment/Plan: Patient is a 84-year-old male with type 2 diabetes, CAD s/p CABG presenting with left-sided weakness and slurred speech secondary to acute CVA. ED documentation reviewed and case discussed with ED provider. Discussed with patient and son. The patient is admitted with an anticipated greater than 2 midnight stay for evaluation of CVA. Anticipated discharge place pending clinical course. #. Left-sided weakness and slurred speech secondary to acute CVA NIH score 6-[address] displaying probable evolving acute infarct right internal capsule extending to the central basal ganglia, no acute intracranial hemorrhage or midline shift Continue with aspirin 81 mg p.o. daily Atorvastatin 80 mg p.o. at bedtime no plavix , await neurology input , due to high NIH TSH and lipid panel ordered Echo ordered MRI brain pending neuro recommendations Neurochecks Cardiac telemetry PT/OT consult Speech therapy consult Neurology consult if worsening mental status , consider repeat CT brain due to evolving infarct to rule out hemorrhagic conversion allow permissive hypertension keep <220/120 #. Fmt-[id number]-[id number] diabetes Insulin SQ sliding scale Accu-Cheks ACHS Monitor for hypoglycemia Hold home oral medication #. CAD #. Hypertension Continue metoprolol 25 mg p.o. daily to avoid rebound tachycardia Hold Cozaar permissive hypertension #. Chronic kidney disease stage IV Patient at baseline creatinine monitor urine output NSS 75 cc/hr DVT prophylaxis: SCDs, avoid pharmacologic DVT PPX for 24-48 hrs due to evolving infarct to reduce risk of hemorrhagic conversion Hailee White MD PGY-1 IM Dictation was produced using [employer] dictation software. please excuse any grammatical, word or spelling errors. I have seen and evaluated the patient today. I Discussed the case with the resident and agree with the resident's findings I edited the assessment and plan as necessary as documented in the resident's note. Past Medical History Past Medical History: Diabetes Mellitus History of Any Multi-Drug Resistant Organisms: None Reported Additional Past Surgical History / Comment(s): triple bypass Past Anesthesia/Blood Transfusion Reactions: No Reported Reaction Past Psychological History: No Psychological Hx Reported Smoking Status: Never smoker Past Drug Use History: None Reported Medications and Allergies Home Medications Medication Instructions Recorded Confirmed Type Glimepiride [Amaryl] 1 mg PO DAILY 03/11/24 04/29/24 History Ketorolac 0.5% Ophth Soln [Acular 1 drops LEFT EYE DAILY 03/11/24 04/29/24 History 0.5%] Latanoprost [Latanoprost 0.005%] 1 drop BOTH EYES HS 03/11/24 04/29/24 History Losartan [Cozaar] 12.5 mg PO DAILY 03/11/24 04/29/24 History Metoprolol Tartrate [Lopressor] 25 mg PO DAILY 03/11/24 04/29/24 History Pioglitazone [Actos] 45 mg PO DAILY 03/11/24 04/29/24 History calcitrioL [Rocaltrol] 0.25 mcg PO TH 03/11/24 04/29/24 History methocarbamoL [Robaxin] 500 mg PO Q12H PRN 03/11/24 04/29/24 History prednisoLONE ACETATE 1% OPHTH 1 drop LEFT EYE DAILY 03/11/24 04/29/24 History [Pred Forte 1%] sitaGLIPtin [Januvia] 100 mg PO DAILY 03/11/24 04/29/24 History Allergies Allergy/AdvReac Type Severity Reaction Status Date / Time No Known Allergies Allergy Verified 04/29/24 19:32 Physical Exam Vitals: Vital Signs Temp Pulse Resp BP Pulse Ox 04/29/24 18:57 77 15 128/66 99 04/29/24 18:41 68 14 141/70 97 04/29/24 18:34 15 04/29/24 18:10 98.4 F 83 18 143/85 99 Intake and Output 04/29/24 04/29/24 04/29/24 06:59 14:59 22:59 Other: Weight 92.986 kg Results CBC & Chem 7: 04/29/24 18:34 04/29/24 18:34 Labs: Abnormal Lab Results - Last 24 Hours (Table) 04/29/24 04/29/24 04/29/24 Range/Units 18:34 18:34 18:44 Neutrophils # 7.8 H (1.3-7.7) k/uL Sodium 135 L (137-145) mmol/L Carbon Dioxide 21 L (22-30) mmol/L BUN 41 H (9-20) mg/dL Creatinine 2.61 H (0.66-1.25) mg/dL Glucose 191 H (74-99) mg/dL POC Glucose (mg/dL) 176 H (70-110) mg/dL Creatine Kinase 217 H (55-170) U/L
[2024-04-30 07:30] LABS: Glucose,Whole Blood 147 mg/dL (70-110)
[2024-04-30] MEDS: INSULIN LISPRO (HumaLOG) 100 UNIT/ML 10 mL VL SQ SCH (07:31)
[2024-04-30 08:17] LABS: Basophils # (A) 0.1 k/uL (0-0.2); Basophils % (A) 1 %; Eosinophils # (A) 0.3 k/uL (0-0.7); Eosinophils % (A) 3 %; HCT 42.5 % (39.0-53.0); Lymphocytes % (A) 11 %; MCH 30.8 pg (25.0-35.0); MCHC 30.7 g/dL (31.0-37.0); MCV 100.3 fL (80.0-100.0); Mean Platelet Volume 7.7; Monocytes # (A) 0.6 k/uL (0-1.0); Monocytes % (A) 7 %; Neutrophils # (A) 6.8 k/uL (1.3-7.7); Neutrophils % (A) 76 %; Platelet Count 192 k/uL (150-450); RBC 4.24 m/uL (4.30-5.90); RDW 13.1 % (11.5-15.5)
[2024-04-30 08:33] LABS: ALT 18 U/L (4-49); AST 24 U/L (17-59); African American GFR (CKD) 26 (>60 ml/min/1.73 sqM); Albumin 3.4 g/dL (3.5-5.0); Alkaline Phosphatase 54 U/L (38-126); Anion Gap 8 mmol/L; Blood Urea Nitrogen 37 mg/dL (9-20); Calcium 8.8 mg/dL (8.4-10.2); Carbon Dioxide 22 mmol/L (22-30); Chloride 104 mmol/L (98-107); Glucose 145 mg/dL (74-99); Magnesium 2.1 mg/dL (1.6-2.3); Non-African American GFR(CKD) 22 (>60 ml/min/1.73 sqM); Potassium 4.1 mmol/L (3.5-5.1); Sodium 134 mmol/L (137-145); Total Bilirubin 0.8 mg/dL (0.2-1.3); Total Protein 6.3 g/dL (6.3-8.2)
[2024-04-30] MEDS: prednisoLONE ACETATE 1% OPHTH DROPS 5 ML BTL LEFT EYE SCH (08:35)
[2024-04-30] MEDS: METOPROLOL TARTRATE 25 MG TAB PO SCH (08:36)
[2024-04-30] MEDS: KETOROLAC 0.5% OPHTH DROPS 5 ML BTL LEFT EYE SCH (08:36)
[2024-04-30] MEDS: ASPIRIN 81 MG PO SCH (08:36)
[2024-04-30] MEDS ORDERED: PIOGLITAZONE 45 MG TAB PO SCH (09:00)
[2024-04-30] MEDS ORDERED: ASPIRIN 325 MG TAB PO SCH (09:00)
[2024-04-30] MEDS ORDERED: LOSARTAN 25 MG TAB PO SCH (09:00)
[2024-04-30] MEDS ORDERED: LINAGLIPTIN 5 MG TABLET PO SCH (09:00)
[2024-04-30] MEDS ORDERED: GLIMEPIRIDE 1 MG TAB PO SCH (09:00)
[2024-04-30] MEDS ORDERED: CLOPIDOGREL 75 MG TAB PO SCH (09:00)
[2024-04-30 10:59] LABS: Chol/HDL Ratio 3.46 Ratio; LDL Cholesterol,Calculated 78.3 mg/dL (0.0-131.0); VLDL Calculation 18.36 mg/dL (5.00-40.00)
--- NOTE | 2024-04-30 12:15 | P.PN ---
Subjective Progress Note Date: 04/30/24 Patient is a 84-year-old male with type 2 diabetes, CAD s/p CABG presenting with left-sided weakness. Patient accompanied by family, majority of history obtained from family. They state that his onset of symptoms were as around 34 AM this morning. Patient's son says that he normally gets up in the middle the night to urinate, and was at that time where he noticed some left-sided facial weakness and left arm and leg weakness along with slurred speech. Denies any confusion or any previous history of stroke. Patient denies any fever, chills, headache, dizziness, chest pain, heart palpitation, shortness of breath, nausea, vomiting, diarrhea, abdominal pain, trauma. T98.4 F, SD 83, RR 18, BP 143/85, O2 sat 99% on room air EKG independently interpreted displaying sinus rhythm with first-degree AV block, rate 70 bpm, QTc 391 ms, SD interval 226 ms CXR independently interpreted displaying cardiomegaly, no acute cardiopulmonary process CT angio head and neck displaying no evidence of large vessel occlusion or aneurysm at the level of the [place], no evidence of significant stenosis at the carotid bifurcations, severe calcified plaque distal mid right internal carotid artery Brain CT displaying probable evolving acute infarct right internal capsule extending to the central basal ganglia, no acute intracranial hemorrhage or midline shift 04/30/2024 patient seen and examined at bedside. No acute events overnight. No new complaints. Labs today showed WBC 9, hemoglobin 13, platelet count 1 92,000, sodium 134, potassium 4.1, chloride 104, BUN 37, creatinine 2.5, glucose 145, calcium 8.8, magnesium 2.1. Lipid panel showed low HDL at 39, all other values are normal. Liver enzyme tests are normal. TSH 1.29. Review of systems: Pertinent positives and negatives as discussed in HPI, a complete review of systems was performed and all other systems are negative. Physical examination: Vital signs reviewed General: non toxic, no distress, appears at stated age, well nourished, room air Derm: no unusual rashes/lesions, warm Head: atraumatic, normocephalic, symmetric Eyes: EOMI, anicteric sclera, pupils equal round reactive to light ENT: Nose and ears atraumatic Mouth: no lip lesion, mucus membranes moist Cardiovascular: S1S2 reg, no murmur, positive dorsalis pedis pulse bilateral, no edema Lungs: CTA bilateral, no rhonchi, no rales, no accessory muscle use Abdominal: soft, nontender to palpation, no guarding Neuro: Left-sided facial palsy that does not involve the forehead, 3 out of 5 left upper extremity weakness, 2 out of 5 left lower extremity weakness, slurred speech Psych: Alert, oriented to person, place, and time Assessment/Plan: Patient is a 84-year-old male with type 2 diabetes, CAD s/p CABG presenting with left-sided weakness and slurred speech secondary to acute CVA. #. Left-sided weakness and slurred speech secondary to acute CVA NIH score 6-[address] displaying probable evolving acute infarct right internal capsule extending to the central basal ganglia, no acute intracranial hemorrhage or midline shift Continue with aspirin 81 mg p.o. daily Atorvastatin 80 mg p.o. at bedtime TSH and lipid panel normal A1c ordered Echo ordered MRI brain pending Neurochecks Cardiac telemetry PT/OT consult Speech therapy consult Discussed with neurology, will get vascular surgery involved as well Allow permissive hypertension keep <220/120 #. Elevated creatinine kinase Patient had a recent fall around last week Repeat creatinine kinase Chronic conditions: #. Cpm-dgqrvoj-hskmrksct diabetes Insulin SQ sliding scale Accu-Cheks ACHS Monitor for hypoglycemia Check A1c Hold home oral medication #. CAD #. Hypertension Continue metoprolol 25 mg p.o. daily to avoid rebound tachycardia Hold Cozaar permissive hypertension #. Chronic kidney disease stage IV Patient at baseline creatinine monitor urine output IV fluids discontinued DVT prophylaxis: SCDs, avoid pharmacologic DVT PPX for 24-48 hrs due to evolving infarct to reduce risk of hemorrhagic conversion Loree Fisher MD PGY-1/Food Processing Chemist Internal Medicine Dictation was produced using [employer] dictation software. please excuse any grammatical, word or spelling errors. Patient is severely ill, needs close monitoring. Prognosis guarded. I have seen and evaluated the patient today. Discussed with the resident and agree with the residents finding and plan as documented in the resident's note. Changes highlighted in blue font. Objective - Vital Signs Vital signs: Vital Signs Temp 98.4 F 04/29/24 18:10 Pulse 76 04/30/24 06:14 Resp 18 04/30/24 06:14 BP 160/78 04/30/24 06:14 Pulse Ox 97 04/30/24 02:13 FiO2 Intake & Output 04/29/24 04/30/24 04/30/24 18:59 06:59 18:59 Weight 92.986 kg - Labs CBC & Chem 7: 04/30/24 07:58 04/30/24 07:58 Labs: Abnormal Lab Results - Last 24 Hours (Table) 04/29/24 04/29/24 04/29/24 Range/Units 18:34 18:34 18:44 Neutrophils # 7.8 H (1.3-7.7) k/uL Sodium 135 L (137-145) mmol/L Carbon Dioxide 21 L (22-30) mmol/L BUN 41 H (9-20) mg/dL Creatinine 2.61 H (0.66-1.25) mg/dL Glucose 191 H (74-99) mg/dL POC Glucose (mg/dL) 176 H (70-110) mg/dL Creatine Kinase 217 H (55-170) U/L 04/29/24 Range/Units 22:11 Neutrophils # (1.3-7.7) k/uL Sodium (137-145) mmol/L Carbon Dioxide (22-30) mmol/L BUN (9-20) mg/dL Creatinine (0.66-1.25) mg/dL Glucose (74-99) mg/dL POC Glucose (mg/dL) 121 H (70-110) mg/dL Creatine Kinase (55-170) U/L
--- NOTE | 2024-04-30 12:27 | US ---
EXAMINATION TYPE: US carotid duplex BILAT DATE OF EXAM: 04/30/2024 COMPARISON: NONE CLINICAL INDICATION: Male, 84 years old with history of carotid stenosis right ica; stenosis Additional History: .... TECHNIQUE: Grayscale, color Doppler and spectral Doppler evaluation of the bilateral carotid systems and vertebral arteries. Indirect Doppler criteria was utilized. FINDINGS: EXAM MEASUREMENTS: RIGHT: Peak Systolic Velocity (PSV) cm/sec ----- Right CCA: 71.0 ----- Right ICA: 70.3 ----- Right ECA: 84.2 ICA/CCA ratio: 1.0 RIGHT: End Diastole cm/sec ----- Right CCA: 10.6 ----- Right ICA: 14.5 ----- Right ECA: 9.5 LEFT: Peak Systolic Velocity (PSV) cm/sec ----- Left CCA: 67.7 ----- Left ICA: 66.8 ----- Left ECA: 73.2 ICA/CCA ratio: 1.0 LEFT: End Diastole cm/sec ----- Left CCA: 7.3 ----- Left ICA: 17.1 ----- Left ECA: 2.9 VERTEBRALS (direction of flow): Right Vertebral: Antegrade Left Vertebral: Antegrade Rhythm: normal NAVIGATING OFFICER NOTES: Mild plaque right carotid bulb. No elevated velocities Color Doppler imaging shows patency with blood flow throughout the carotid artery. Spectral waveforms are within normal limits. IMPRESSION: Right: Less than 50% stenosis of the carotid bifurcation. Left: No hemodynamically significant stenosis. Criteria for Assigning % of Stenosis / Diameter reduction (Estimation based on the indirect measurements of the internal carotid artery velocities (ICA PSV). 1. Normal (no stenosis)=ICA PSV < 125 cm/s: ratio < 2.0: ICA EDV<40 cm/s. 2. Less than 50% stenosis=ICA PSV < 125 cm/s: ratio < 2.0: ICA EDV<40 cm/s. 3. 50 to 69% stenosis=ICA PSV of 125 to 230 cm/s: ration 2.0 ? 4.0: ICA EDV 40-100 cm/s. 4. Greater than 70% stenosis to near occlusion= ICA PSV > 230 cm/s: ratio > 4.0: ICA EDV > 100 cm/s. 5. Near occlusion= ICA PSV velocities may be low or undetectable: variable ratio and ICA EDV. 6. Total occlusion=unable to detect flow. [facility], , 04/30/2024 12:24 PM
[2024-04-30 12:38] LABS: Glucose,Whole Blood 195 mg/dL (70-110)
--- NOTE | 2024-04-30 12:44 | P.GSCN ---
History of Present Illness Consult date: 04/30/24 Reason for Consult: Right carotid stenosis Requesting physician: Valdemar Olivier History of present illness: This is a pleasant 84-year-old male with a past medical history including coronary artery disease status post triple bypass and diabetes mellitus who was brought in yesterday evening with complaints of left-sided weakness, left facial droop and speech difficulties. Patient was worked up for possible stroke under went CT of the brain that reported a probable evolving acute infarct of the right internal capsule extending into the central basal ganglia. Patient underwent CT angiogram of the head and neck which reported no significant stenosis and bilateral carotid bifurcations, severe calcified plaque distal right internal carotid artery. Vascular surgery was consulted for right ICA stenosis. Patient son is at the bedside. Patient is currently very drowsy. Most of the history obtained from his son in the chart. No previous history of stroke. Onset was around 3 or 4 AM yesterday morning when his son was assisting him to the bathroom he had noticed left upper extremity and lower extremity weakness as well as left facial droop. Patient continues to have some left- sided weakness, still has left facial droop and aphasia. No other reported complaints other than being really tired and that patient did not sleep well last night. Review of Systems A 14 point review systems was completed all pertinent positives and negatives as stated in the HPI. Past Medical History Past Medical History: Diabetes Mellitus History of Any Multi-Drug Resistant Organisms: None Reported Additional Past Surgical History / Comment(s): triple bypass Past Anesthesia/Blood Transfusion Reactions: No Reported Reaction Past Psychological History: No Psychological Hx Reported Smoking Status: Never smoker Past Drug Use History: None Reported Medications and Allergies Home Medications Medication Instructions Recorded Confirmed Type Glimepiride [Amaryl] 1 mg PO DAILY 03/11/24 04/29/24 History Ketorolac 0.5% Ophth Soln [Acular 1 drops LEFT EYE DAILY 03/11/24 04/29/24 History 0.5%] Latanoprost [Latanoprost 0.005%] 1 drop BOTH EYES HS 03/11/24 04/29/24 History Losartan [Cozaar] 12.5 mg PO DAILY 03/11/24 04/29/24 History Metoprolol Tartrate [Lopressor] 25 mg PO DAILY 03/11/24 04/29/24 History Pioglitazone [Actos] 45 mg PO DAILY 03/11/24 04/29/24 History calcitrioL [Rocaltrol] 0.25 mcg PO TH 03/11/24 04/29/24 History methocarbamoL [Robaxin] 500 mg PO Q12H PRN 03/11/24 04/29/24 History prednisoLONE ACETATE 1% OPHTH 1 drop LEFT EYE DAILY 03/11/24 04/29/24 History [Pred Forte 1%] sitaGLIPtin [Januvia] 100 mg PO DAILY 03/11/24 04/29/24 History Allergies Allergy/AdvReac Type Severity Reaction Status Date / Time No Known Allergies Allergy Verified 04/29/24 19:32 Surgical - Exam Vital Signs Temp Pulse Resp BP Pulse Ox 98.4 F 83 18 143/85 99 04/29/24 18:10 04/29/24 18:10 04/29/24 18:10 04/29/24 18:10 04/29/24 18:10 General appearance: The patient is alert, oriented, appears in no acute distress. HET: Head is normocephalic and atraumatic. Pupils are equal and reactive. Neck: Supple. No audible bruit. Heart: Regular. Lungs: Equal expansion, normal respiratory effort. Abdomen: Soft, nontender, nondistended. Extremities: Normal skin color and turgor. Neurological: Left facial droop, patient very drowsy however was able to answer a couple questions appropriately, speech is aphasic, good tone bilaterally, left hand grasp weak. Results - Labs 04/30/24 07:58 04/30/24 07:58 Abnormal Lab Results - Last 24 Hours (Table) 04/29/24 04/29/24 04/29/24 Range/Units 18:34 18:34 18:44 RBC (4.30-5.90) m/uL MCV (80.0-100.0) fL MCHC (31.0-37.0) g/dL Neutrophils # 7.8 H (1.3-7.7) k/uL Sodium 135 L (137-145) mmol/L Carbon Dioxide 21 L (22-30) mmol/L BUN 41 H (9-20) mg/dL Creatinine 2.61 H (0.66-1.25) mg/dL Glucose 191 H (74-99) mg/dL POC Glucose (mg/dL) 176 H (70-110) mg/dL Creatine Kinase 217 H (55-170) U/L Albumin (3.5-5.0) g/dL HDL Cholesterol (40.00-60.00) mg/dL 04/29/24 04/30/24 04/30/24 Range/Units 22:11 07:29 07:58 RBC (4.30-5.90) m/uL MCV (80.0-100.0) fL MCHC (31.0-37.0) g/dL Neutrophils # (1.3-7.7) k/uL Sodium (137-145) mmol/L Carbon Dioxide (22-30) mmol/L BUN (9-20) mg/dL Creatinine (0.66-1.25) mg/dL Glucose (74-99) mg/dL POC Glucose (mg/dL) 121 H 147 H (70-110) mg/dL Creatine Kinase (55-170) U/L Albumin (3.5-5.0) g/dL HDL Cholesterol 39.30 L (40.00-60.00) mg/dL 04/30/24 04/30/24 Range/Units 07:58 07:58 RBC 4.24 L (4.30-5.90) m/uL MCV 100.3 H (80.0-100.0) fL MCHC 30.7 L (31.0-37.0) g/dL Neutrophils # (1.3-7.7) k/uL Sodium 134 L (137-145) mmol/L Carbon Dioxide (22-30) mmol/L BUN 37 H (9-20) mg/dL Creatinine 2.50 H (0.66-1.25) mg/dL Glucose 145 H (74-99) mg/dL POC Glucose (mg/dL) (70-110) mg/dL Creatine Kinase (55-170) U/L Albumin 3.4 L (3.5-5.0) g/dL HDL Cholesterol (40.00-60.00) mg/dL Diabetes panel 04/29/24 04/30/24 04/30/24 Range/Units 18:34 07:58 07:58 Sodium 135 L 134 L (137-145) mmol/L Potassium 4.7 4.1 (3.5-5.1) mmol/L Chloride 102 104 (98-107) mmol/L Carbon Dioxide 21 L 22 (22-30) mmol/L BUN 41 H 37 H (9-20) mg/dL Creatinine 2.61 H 2.50 H (0.66-1.25) mg/dL Glucose 191 H 145 H (74-99) mg/dL Calcium 9.4 8.8 (8.4-10.2) mg/dL AST 27 24 (17-59) U/L ALT 21 18 (4-49) U/L Alkaline Phosphatase 58 54 (38-126) U/L Total Protein 7.6 6.3 (6.3-8.2) g/dL Albumin 4.3 3.4 L (3.5-5.0) g/dL Triglycerides 91.80 (0.00-149.00) mg/dL HDL Cholesterol 39.30 L (40.00-60.00) mg/dL Thyroid panel 04/30/24 Range/Units 07:58 TSH 1.290 (0.465-4.680) mIU/L Calcium panel 04/29/24 04/30/24 Range/Units 18:34 07:58 Calcium 9.4 8.8 (8.4-10.2) mg/dL Albumin 4.3 3.4 L (3.5-5.0) g/dL Pituitary panel 04/29/24 04/30/24 Range/Units 18:34 07:58 Sodium 135 L 134 L (137-145) mmol/L Potassium 4.7 4.1 (3.5-5.1) mmol/L Chloride 102 104 (98-107) mmol/L Carbon Dioxide 21 L 22 (22-30) mmol/L BUN 41 H 37 H (9-20) mg/dL Creatinine 2.61 H 2.50 H (0.66-1.25) mg/dL Glucose 191 H 145 H (74-99) mg/dL Calcium 9.4 8.8 (8.4-10.2) mg/dL TSH 1.290 (0.465-4.680) mIU/L Adrenal panel 04/29/24 04/30/24 Range/Units 18:34 07:58 Sodium 135 L 134 L (137-145) mmol/L Potassium 4.7 4.1 (3.5-5.1) mmol/L Chloride 102 104 (98-107) mmol/L Carbon Dioxide 21 L 22 (22-30) mmol/L BUN 41 H 37 H (9-20) mg/dL Creatinine 2.61 H 2.50 H (0.66-1.25) mg/dL Glucose 191 H 145 H (74-99) mg/dL Calcium 9.4 8.8 (8.4-10.2) mg/dL Total Bilirubin 0.9 0.8 (0.2-1.3) mg/dL AST 27 24 (17-59) U/L ALT 21 18 (4-49) U/L Alkaline Phosphatase 58 54 (38-126) U/L Total Protein 7.6 6.3 (6.3-8.2) g/dL Albumin 4.3 3.4 L (3.5-5.0) g/dL - Imaging Comments: Brain CT reports probable evolving acute infarct right internal capsule extending into the central basal ganglia. Consider MRI for confirmation. No acute intracranial hemorrhage or midline shift CT angiogram head and neck reports no evidence of large vessel occlusion or aneurysm at the level of [place]. No evidence of significant stenosis at the carotid bifurcations. Severe calcified plaque distal right internal carotid artery. Cannot exclude significant stenosis at this level. Carotid Doppler study reports right less than 50% stenosis of the carotid bifurcation left with no hemodynamically significant stenosis. Right ICA PSV 70.3, ICA/CCA ratio 1.0. Left ICA PSV 66.8, ICA/CCA ratio 1.0 Chest x-ray reports cardiomegaly without acute pulmonary process Assessment and Plan Assessment: 1. Acute infarct right internal capsule extending into central basal ganglia 2. Left upper and lower extremity weakness, left facial droop 3. Aphasia 4. No hemodynamically significant internal carotid artery stenosis at bilateral carotid bifurcations, reported severe calcified plaque of the distal right int ernal carotid artery per CTA 5. Diabetes mellitus 6. History of coronary artery disease status post CABG Plan: 1. Await MRI results 2. Await echocardiogram results 3. Continue with recommendations from neurology 4. PT/OT/ST on consult 5. Further recommendations forthcoming based on clinical course 6. Rest of medical management per primary medical team Thank you for this consultation, we will continue to follow. The impression and plan of care has been dictated as directed. Dr. Murray I performed a history and examination of this patient, discussed the same with the dictator. I agree with the dictator's note ,documented as a scribe. Any additional findings or plans will be noted.
--- NOTE | 2024-04-30 13:44 | FL ---
Modified barium swallow. HISTORY: Dysphagia. Modified barium swallow was performed with the department of speech pathology. The patient was prese nted with various consistencies of barium. There is no evidence for aspiration or penetration. Full report is to follow from the department of speech pathology. Impression: No evidence for aspiration at this time. [facility], , 04/30/2024 1:41 PM
--- NOTE | 2024-04-30 14:47 | P.CNNES ---
History of Present Illness Consult date: 04/30/24 Requesting physician: Nitesh Shields Reason for Consult: cva History of Present Illness: This is a 84 year-old gentleman who presents to the emergency department because of left facial weakness and left arm weakness. Patient's son (Chiatanya) is at bedside who provides history. Son states he lives with him. At around 2-3am saqib rae was noted to have weakness over the left face and arm. Last normal was at 9-9:30pm Friday. Patient does not have history of cva. But he does have history of hypertension, DM, CABG about 13 years ago. He is on not antiplatelets at home. No tobacco use or significant alcohol use. Some of the work-up during this hospital visit consisted of: Lipid panel: TG 91, cholestrol 136, LDL 78 and HDL 39. TSH: 1.29 I reviewed the rest of lab work-up. CT head: probable evolving acute infarct right internal capsule extending into central basal ganglia. Consider MRI for confirmation. I personally reviewed and do agree and it seem more acute to subacute ischemic stroke. CTA head and neck: No evidence for large vessel occlusion or aneurysm at level of [place]. Severe calcified plaque distal right internal carotid artery. Review of Systems As per HPI. Past Medical History Past Medical History: Diabetes Mellitus History of Any Multi-Drug Resistant Organisms: None Reported Additional Past Surgical History / Comment(s): triple bypass Past Anesthesia/Blood Transfusion Reactions: No Reported Reaction Past Psychological History: No Psychological Hx Reported Smoking Status: Never smoker Past Drug Use History: None Reported Medications and Allergies Home Medications Medication Instructions Recorded Confirmed Type Glimepiride [Amaryl] 1 mg PO DAILY 03/11/24 04/29/24 History Ketorolac 0.5% Ophth Soln [Acular 1 drops LEFT EYE DAILY 03/11/24 04/29/24 History 0.5%] Latanoprost [Latanoprost 0.005%] 1 drop BOTH EYES HS 03/11/24 04/29/24 History Losartan [Cozaar] 12.5 mg PO DAILY 03/11/24 04/29/24 History Metoprolol Tartrate [Lopressor] 25 mg PO DAILY 03/11/24 04/29/24 History Pioglitazone [Actos] 45 mg PO DAILY 03/11/24 04/29/24 History calcitrioL [Rocaltrol] 0.25 mcg PO TH 03/11/24 04/29/24 History methocarbamoL [Robaxin] 500 mg PO Q12H PRN 03/11/24 04/29/24 History prednisoLONE ACETATE 1% OPHTH 1 drop LEFT EYE DAILY 03/11/24 04/29/24 History [Pred Forte 1%] sitaGLIPtin [Januvia] 100 mg PO DAILY 03/11/24 04/29/24 History Allergies Allergy/AdvReac Type Severity Reaction Status Date / Time No Known Allergies Allergy Verified 04/29/24 19:32 Physical Examination - Vital Signs Vital Signs: Vital Signs Temp Pulse Resp BP BP Pulse Ox 04/30/24 12:00 16 145/65 94 L 04/30/24 08:40 97.6 F 65 18 160/79 96 04/30/24 06:14 76 18 160/78 04/30/24 02:13 63 16 141/65 97 04/30/24 00:38 56 L 16 129/79 97 04/29/24 23:13 63 18 04/29/24 18:57 77 15 128/66 99 04/29/24 18:41 68 14 141/70 97 04/29/24 18:34 15 04/29/24 18:10 98.4 F 83 18 143/85 99 Intake and Output 04/29/24 04/30/24 04/30/24 22:59 06:59 14:59 Other: Weight 92.986 kg GENERAL: The patient is lying in bed and is not in acute distress. NEUROLOGICAL: Higher mental function: The patient is drowsy but is awakeable to voice. Is oriented to self and states he is hospital. Is following simple commands. Is mildly slow following commands. No aphasia. Cranial nerves: The pupils are round, equal and reactive to light and accommodation. Visual starks are full to confrontation throughout. Extraocular movement is intact no nystagmus is noted. Facial sensation is normal to touch throughout. Has left lower facial weakness that is moderate in severeity. Has mild dysarthria. TTongue is midline and moved [id number] without any difficulty. No dysarthria is noted. Shoulder shrug is normal bilaterally. Motor: The strength is left upper extremity is 4+. Otherwise is 5/5. Normal tone and bulk. Cerebellum: Normal finger to nose bilaterally. Has end action tremor. Sensation: Sensation is normal to touch throughout. Reflexes (right/left): 2+ throughout. Plantars are mute bilaterally. Results - Laboratory Findings CBC and BMP: 04/30/24 07:58 04/30/24 07:58 Abnormal Lab Findings: Abnormal Labs 04/29/24 04/29/24 04/29/24 18:34 18:34 18:44 RBC MCV MCHC Neutrophils # 7.8 H Sodium 135 L Carbon Dioxide 21 L BUN 41 H Creatinine 2.61 H Glucose 191 H POC Glucose (mg/dL) 176 H Creatine Kinase 217 H Albumin HDL Cholesterol 04/29/24 04/30/24 04/30/24 22:11 07:29 07:58 RBC MCV MCHC Neutrophils # Sodium Carbon Dioxide BUN Creatinine Glucose POC Glucose (mg/dL) 121 H 147 H Creatine Kinase Albumin HDL Cholesterol 39.30 L 04/30/24 04/30/24 04/30/24 07:58 07:58 12:37 RBC 4.24 L MCV 100.3 H MCHC 30.7 L Neutrophils # Sodium 134 L Carbon Dioxide BUN 37 H Creatinine 2.50 H Glucose 145 H POC Glucose (mg/dL) 195 H Creatine Kinase Albumin 3.4 L HDL Cholesterol Assessment and Plan Assessment: This is a 84 y/o gentleman who present to ED for left facial droop and left upper extremity weakness and noticed overnight. Acute ischemic stroke, symptoms of left facial droop, dysarthria and left upper extremity weakness. CT head stroke over the right internal capsule. I feel stroke is chronic small vessel disease to due his multiple risk factors (hypertension, DM, CABG, age) and in additional right carotid stenosis. No IV thrombolytic since outside window and risk outweigh benefit. Severe calcified plaque distal right internal carotid artery on CTA Ongoing Hypertension Ongoing DM History of CABG Plan: I ordered MRI Brain, carotid duplex. The patient is started on ASA 81mg daily by primary team and he was given 325mg once in the ED. Prior to this he was not on antiplatelets. I also added Plavix 75mg especially with new stroke and carotid stenosis. Recommend dual antiplatelets for 21 days then monotherapy unless he has falls or bruises easily then recommend monotherapy. He was started on Lipitor 80mg qhs. I consulted vascular surgery team for carotid stenosis. Continue neuro checks. Cardiac monitoring PT, OT and [facility] [employer] are consulted. Will defer the rest of medical management to primary team and others specialist. For DVT prophylaxis: Started subq heparin The plan is discussed with patient's son and primary team. Thank you for the consultation. Dr. Horan will resume neurology service tomorrow A.M. Time with Patient: Greater than 30
[2024-04-30] MEDS: HEPARIN SODIUM,PORCINE 5,000 UNIT/ML 1 ML VIAL SQ SCH (17:17)
[2024-04-30 17:18] LABS: Glucose,Whole Blood 144 mg/dL (70-110)
[2024-04-30] MEDS: CLOPIDOGREL 75 MG TAB PO SCH (17:31)
--- NOTE | 2024-04-30 20:39 | CA ---
Transthoracic Echo Report Name: Emile Espinoza Age: 84 Gender: M : 1940 Exam Date: 04/30/2024 13:39 Exam Location: [facility] Ht (in): 72 Wt (lb): 205 Ordering Physician: Nitesh Shields DO Attending/Referring Phys: [employer] Technician Beulah Gutierres RDCS Procedure CPT: Indications: Thrombus Cardiac Hx: CABG X 3 Technical Quality: Technically difficult study Contrast 1: Definity Total Dose (mL): 2 Contrast 2: Total Dose (mL): MEASUREMENTS (Male / Female) Normal Values 2D ECHO LV Diastolic Diameter PLAX 4.4 cm 4.2 - 5.9 / 3.9 - 5.3 cm LV Systolic Diameter PLAX 2.9 cm IVS Diastolic Thickness 1.5 cm 0.6 - 1.0 / 0.6 - 0.9 cm LVPW Diastolic Thickness 1.4 cm 0.6 - 1.0 / 0.6 - 0.9 cm LV Relative Wall Thickness 0.7 RV Internal Dim ED PLAX 3.7 cm LA Systolic Diameter LX 4.6 cm 3.0 - 4.0 / 2.7 - 3.8 cm LV Diastolic Volume MOD BP 118.8 cm??? 67 - 155 / 56 - 104 cm??? LV Systolic Volume MOD BP 42.5 cm??? 22 - 58 / 19 - 49 cm??? LV Ejection Fraction MOD BP 64.3 % >= 55 % LV Cardiac Index MOD BP 1744.0 cm???/min???m??? LV Diastolic Volume MOD 4C 119.0 cm??? LV Systolic Volume MOD 4C 45.9 cm??? LV Ejection Fraction MOD 4C 61.4 % LV Cardiac Index MOD 4C 1668.7 cm???/min???m??? LV Diastolic Length 4C 7.8 cm LV Systolic Length 4C 7.7 cm LV Diastolic Volume MOD 2C 116.9 cm??? LV Systolic Volume MOD 2C 34.1 cm??? LV Ejection Fraction MOD 2C 70.9 % LV Cardiac Index MOD 2C 1892.6 cm???/min???m??? LV Diastolic Length 2C 7.6 cm LV Systolic Length 2C 6.5 cm M-MODE Aortic Root Diameter MM 4.0 cm DOPPLER AI Peak Velocity 237.0 cm/s AI Peak Gradient 22.5 mmHg AI Pressure Half Time 1089.4 ms MV E' Velocity 5.1 cm/s TR Peak Velocity 207.5 cm/s TR Peak Gradient 17.2 mmHg Right Ventricular Systolic Press 27.7 mmHg FINDINGS Left Ventricle Left ventricular ejection fraction is estimated at 45-50%. Left ventricular cavity size normal. Moderate concentric left ventricular hypertrophy. Right Ventricle Moderate right ventricular dilatation. Right ventricular systolic pressure within normal limits. Right Atrium Severe right atrial dilatation. No right atrial thrombus or mass seen. Left Atrium Mildly increased left atrial diameter. No left atrial thrombus or mass present. Mitral Valve Structurally normal mitral valve. Trace mitral regurgitation. Aortic Valve Trileaflet aortic valve. Mild aortic regurgitation. Aortic valve sclerosis. Tricuspid Valve Structurally normal tricuspid valve. Mild tricuspid regurgitation. Pulmonic Valve Structurally normal pulmonic valve. Trace pulmonic regurgitation. Pericardium No pericardial effusion. Aorta Moderate aortic dilatation at the level of the sinuses of valsalva 40 mm CONCLUSIONS Mildly impaired LV function with EF between 45 to 50% Overall technically difficult study for interpretation Previewed by: Dr. Bruno Vivar MD (Electronically Signed) Final Date: 30 April 2024 20:38
[2024-04-30 21:53] LABS: Glucose,Whole Blood 178 mg/dL (70-110)
[2024-04-30 22:47] LABS: Glucose,Whole Blood 187 mg/dL (70-110)
[2024-05-01 06:20] LABS: Basophils % (A) 0 %; Eosinophils # (A) 0.3 k/uL (0-0.7); Eosinophils % (A) 3 %; HCT 41.1 % (39.0-53.0); HGB 13.5 gm/dL (13.0-17.5); Lymphocytes # (A) 1.2 k/uL (1.0-4.8); Lymphocytes % (A) 14 %; MCH 32.2 pg (25.0-35.0); MCHC 32.8 g/dL (31.0-37.0); MCV 98.2 fL (80.0-100.0); Mean Platelet Volume 8.2; Monocytes # (A) 0.7 k/uL (0-1.0); Monocytes % (A) 8 %; Neutrophils # (A) 6.2 k/uL (1.3-7.7); Neutrophils % (A) 73 %; Platelet Count 192 k/uL (150-450); RBC 4.19 m/uL (4.30-5.90); RDW 13.3 % (11.5-15.5); WBC 8.5 k/uL (3.8-10.6)
[2024-05-01 06:20] LABS: Glucose,Whole Blood 139 mg/dL (70-110)
[2024-05-01 06:46] LABS: Potassium 4.1 mmol/L (3.5-5.1)
[2024-05-01 06:47] LABS: African American GFR (CKD) 28 (>60 ml/min/1.73 sqM); Anion Gap 8 mmol/L; Blood Urea Nitrogen 33 mg/dL (9-20); Calcium 9.3 mg/dL (8.4-10.2); Carbon Dioxide 23 mmol/L (22-30); Chloride 105 mmol/L (98-107); Glucose 123 mg/dL (74-99); Non-African American GFR(CKD) 25 (>60 ml/min/1.73 sqM); Sodium 136 mmol/L (137-145)
[2024-05-01 11:23] LABS: Glucose,Whole Blood 207 mg/dL (70-110)
[2024-05-01] MEDS: LOSARTAN 25 MG TAB PO SCH (11:58)
--- NOTE | 2024-05-01 12:46 | P.PN ---
Subjective Progress Note Date: 05/01/24 Patient is a 84-year-old male with type 2 diabetes, CAD s/p CABG presenting with left-sided weakness. Patient accompanied by family, majority of history obtained from family. They state that his onset of symptoms were as around 34 AM this morning. Patient's son says that he normally gets up in the middle the night to urinate, and was at that time where he noticed some left-sided facial weakness and left arm and leg weakness along with slurred speech. Denies any confusion or any previous history of stroke. Patient denies any fever, chills, headache, dizziness, chest pain, heart palpitation, shortness of breath, nausea, vomiting, diarrhea, abdominal pain, trauma. T98.4 F, ME 83, RR 18, BP 143/85, O2 sat 99% on room air EKG independently interpreted displaying sinus rhythm with first-degree AV block, rate 70 bpm, QTc 391 ms, ME interval 226 ms CXR independently interpreted displaying cardiomegaly, no acute cardiopulmonary process CT angio head and neck displaying no evidence of large vessel occlusion or aneurysm at the level of the [place], no evidence of significant stenosis at the carotid bifurcations, severe calcified plaque distal mid right internal carotid artery Brain CT displaying probable evolving acute infarct right internal capsule extending to the central basal ganglia, no acute intracranial hemorrhage or midline shift 04/30/2024 patient seen and examined at bedside. No acute events overnight. No new complaints. Labs today showed WBC 9, hemoglobin 13, platelet count 1 92,000, sodium 134, potassium 4.1, chloride 104, BUN 37, creatinine 2.5, glucose 145, calcium 8.8, magnesium 2.1. Lipid panel showed low HDL at 39, all other values are normal. Liver enzyme tests are normal. TSH 1.29. 05/01/2024 patient seen and examined at bedside. No acute events overnight. No new complaints. Labs: WBC 8.5, hemoglobin 13.5, platelet count 1 92,000, sodium 136, potassium 4.1, bicarb 23, BUN 33, creatinine 2.33, glucose 123, calcium 9.3. A1c 7.2 Imaging: Echocardiogram showed ejection fraction estimated 45 to 50%, severe right atrial dilatation, moderate right ventricular dilatation with right ventricular systolic pressure within normal limits. Bilateral carotid ultrasound showed less than 50% stenosis of carotid bifurcation on the right. Review of systems: Pertinent positives and negatives as discussed in HPI, a complete review of systems was performed and all other systems are negative. Physical examination: Vital signs reviewed General: non toxic, no distress, appears at stated age, well nourished, room air Derm: no unusual rashes/lesions, warm Head: atraumatic, normocephalic, symmetric Eyes: EOMI, anicteric sclera, pupils equal round reactive to light ENT: Nose and ears atraumatic Mouth: no lip lesion, mucus membranes moist Cardiovascular: S1S2 reg, no murmur, positive dorsalis pedis pulse bilateral, no edema Lungs: CTA bilateral, no rhonchi, no rales, no accessory muscle use Abdominal: soft, nontender to palpation, no guarding Neuro: Left-sided facial palsy that does not involve the forehead, 3 out of 5 left upper extremity weakness, 2 out of 5 left lower extremity weakness, slurred speech Psych: Alert, oriented to person, place, and time Assessment/Plan: Patient is a 84-year-old male with type 2 diabetes, CAD s/p CABG presenting with left-sided weakness and slurred speech secondary to acute CVA. #. Left-sided weakness and slurred speech secondary to acute CVA NIH score 6-[address] displaying probable evolving acute infarct right internal capsule extending to the central basal ganglia, no acute intracranial hemorrhage or midline shift Continue with aspirin 81 mg p.o. daily Atorvastatin 80 mg p.o. at bedtime TSH and lipid panel normal A1c 7.2 Echocardiogram showed ejection fraction estimated 45 to 50%, severe right atrial dilatation, moderate right ventricular dilatation with right ventricular systolic pressure within normal limits. MRI brain pending Neurochecks Fall precautions Cardiac telemetry PT/OT consult Speech therapy consult Neurology consult. Initiated Plavix p.o. daily Allow permissive hypertension keep <220/120 #. Carotid Stenosis on carotid ultrasound #. Severe calcified plaque of distal R ICA on CT angiography -Consult vascular for recommendations -Follow up on outpatient basis #. Ischemic cardiomyopathy EF 45-50% -Echocardiogram showed ejection fraction estimated 45 to 50%. No prior echo to compare. No known diagnosis of HF -Patient not experiencing any cardiac symptoms -Follow-up with cardiology on outpatient #. Elevated creatinine kinase Patient had a recent fall around last week Repeat creatinine kinase pending Chronic conditions: #. Tvu-zcdundn-rvoedlcek diabetes Insulin SQ sliding scale Accu-Cheks ACHS Monitor for hypoglycemia A1c as above Hold home oral medication #. CAD #. Hypertension Continue metoprolol 25 mg p.o. daily to avoid rebound tachycardia Restarted Cozaar Metoprolol succinate 25mg po daily #. Chronic kidney disease stage IV Patient at baseline creatinine monitor urine output IV fluids discontinued F: oral intake N: dyphagia diet A: fall precautions. Ambulate with assistance DVT prophylaxis: SCDs, avoid pharmacologic DVT PPX for 24-48 hrs due to evolving infarct to reduce risk of hemorrhagic conversion Loree Fisher MD PGY-1/Customer Specialist Internal Medicine Dictation was produced using [employer] dictation software. please excuse any grammatical, word or spelling errors. I have seen and evaluated the patient today. Discussed with the resident and agree with the residents finding and plan as documented in the resident's note. Changes highlighted in blue font. Objective - Vital Signs Vital signs: Vital Signs Temp 98.2 F 04/30/24 23:00 Pulse 71 05/01/24 03:25 Resp 19 05/01/24 03:25 BP 160/81 05/01/24 03:25 Pulse Ox 97 05/01/24 03:25 FiO2 Intake & Output 04/30/24 05/01/24 05/01/24 18:59 06:59 18:59 Intake Total 10 Balance 10 Weight 92.986 kg 93.5 kg Intake: IV 10 Invasive Line 1 10 Other: Voiding Method Diaper # Voids 2 1 - Labs CBC & Chem 7: 05/01/24 05:52 05/01/24 05:52 Labs: Abnormal Lab Results - Last 24 Hours (Table) 04/30/24 04/30/24 04/30/24 Range/Units 07:29 07:58 07:58 RBC 4.24 L (4.30-5.90) m/uL MCV 100.3 H (80.0-100.0) fL MCHC 30.7 L (31.0-37.0) g/dL Sodium (137-145) mmol/L BUN (9-20) mg/dL Creatinine (0.66-1.25) mg/dL Glucose (74-99) mg/dL POC Glucose (mg/dL) 147 H (70-110) mg/dL Hemoglobin A1c (<=6.0) % Albumin (3.5-5.0) g/dL HDL Cholesterol 39.30 L (40.00-60.00) mg/dL 04/30/24 04/30/24 04/30/24 Range/Units 07:58 07:58 12:37 RBC (4.30-5.90) m/uL MCV (80.0-100.0) fL MCHC (31.0-37.0) g/dL Sodium 134 L (137-145) mmol/L BUN 37 H (9-20) mg/dL Creatinine 2.50 H (0.66-1.25) mg/dL Glucose 145 H (74-99) mg/dL POC Glucose (mg/dL) 195 H (70-110) mg/dL Hemoglobin A1c 7.2 H (<=6.0) % Albumin 3.4 L (3.5-5.0) g/dL HDL Cholesterol (40.00-60.00) mg/dL 04/30/24 04/30/24 04/30/24 Range/Units 17:17 21:51 22:44 RBC (4.30-5.90) m/uL MCV (80.0-100.0) fL MCHC (31.0-37.0) g/dL Sodium (137-145) mmol/L BUN (9-20) mg/dL Creatinine (0.66-1.25) mg/dL Glucose (74-99) mg/dL POC Glucose (mg/dL) 144 H 178 H 187 H (70-110) mg/dL Hemoglobin A1c (<=6.0) % Albumin (3.5-5.0) g/dL HDL Cholesterol (40.00-60.00) mg/dL 05/01/24 05/01/24 05/01/24 Range/Units 05:52 05:52 06:00 RBC 4.19 L (4.30-5.90) m/uL MCV (80.0-100.0) fL MCHC (31.0-37.0) g/dL Sodium 136 L (137-145) mmol/L BUN 33 H (9-20) mg/dL Creatinine 2.33 H (0.66-1.25) mg/dL Glucose 123 H (74-99) mg/dL POC Glucose (mg/dL) 139 H (70-110) mg/dL Hemoglobin A1c (<=6.0) % Albumin (3.5-5.0) g/dL HDL Cholesterol (40.00-60.00) mg/dL
--- NOTE | 2024-05-01 13:06 | P.PN ---
Subjective Progress Note Date: 05/01/24 Principal diagnosis: CVA patient seen and examined. No new events. Son is at bedside Objective - Vital Signs Vital signs: Vital Signs Temp 98.5 F 05/01/24 09:00 Pulse 59 L 05/01/24 11:05 Resp 18 05/01/24 11:05 BP 149/79 05/01/24 11:05 Pulse Ox 98 05/01/24 11:05 FiO2 Intake & Output 04/30/24 05/01/24 05/01/24 18:59 06:59 18:59 Intake Total 10 10 Balance 10 10 Weight 92.986 kg 93.5 kg Intake: IV 10 10 Invasive Line 1 10 10 Other: Voiding Method Diaper Diaper # Voids 2 1 - Exam General appearance: The patient is alert, oriented, appears in no acute distress. HET: Head is normocephalic and atraumatic. Pupils are equal and reactive. Neck: Supple. No audible bruit. Heart: Regular. Lungs: Equal expansion, normal respiratory effort. Abdomen: Soft, nontender, nondistended. Extremities: Normal skin color and turgor. Neurological: Left facial droop, speech is aphasic, good tone bilaterally, left hand grasp weak. - Labs CBC & Chem 7: 05/01/24 05:52 05/01/24 05:52 Labs: Abnormal Lab Results - Last 24 Hours (Table) 04/30/24 04/30/24 04/30/24 Range/Units 07:58 12:37 17:17 RBC (4.30-5.90) m/uL Sodium (137-145) mmol/L BUN (9-20) mg/dL Creatinine (0.66-1.25) mg/dL Glucose (74-99) mg/dL POC Glucose (mg/dL) 195 H 144 H (70-110) mg/dL Hemoglobin A1c 7.2 H (<=6.0) % 04/30/24 04/30/24 05/01/24 Range/Units 21:51 22:44 05:52 RBC (4.30-5.90) m/uL Sodium 136 L (137-145) mmol/L BUN 33 H (9-20) mg/dL Creatinine 2.33 H (0.66-1.25) mg/dL Glucose 123 H (74-99) mg/dL POC Glucose (mg/dL) 178 H 187 H (70-110) mg/dL Hemoglobin A1c (<=6.0) % 05/01/24 05/01/24 05/01/24 Range/Units 05:52 06:00 11:20 RBC 4.19 L (4.30-5.90) m/uL Sodium (137-145) mmol/L BUN (9-20) mg/dL Creatinine (0.66-1.25) mg/dL Glucose (74-99) mg/dL POC Glucose (mg/dL) 139 H 207 H (70-110) mg/dL Hemoglobin A1c (<=6.0) % Assessment and Plan Assessment: 1. Acute infarct right internal capsule extending into central basal ganglia 2. Left upper and lower extremity weakness, left facial droop 3. Aphasia 4. No hemodynamically significant internal carotid artery stenosis at bilateral carotid bifurcations, reported severe calcified plaque of the distal right internal carotid artery within the skull 5. Diabetes mellitus 6. History of coronary artery disease status post CABG Plan: 1. Await MRI results 2. ECHO reviewed 3. Continue with recommendations from neurology 4. Reviewed carotid Doppler- less than 50% stenosis of bilateral carotid arteries. 5. CTA demonstrated possible calcified stenosis within the skull and therefore no vascular intervention for the cervical carotid. 6. Continue current medical care 7. No further vascular surgical intervention recommended at this time.
--- NOTE | 2024-05-01 14:17 | MR ---
INDICATION: Patient age:Male; 84 years old; Reason for study: stroke left sided weakness.; PHH. COMPARISON: CT brain 03/11/2024, 04/29/2024, CT head and neck 04/29/2024. TECHNIQUE: Multi planar, multi sequence imaging was performed through the brain without the administr ation of intravenous contrast. FINDINGS: The bonilla-white junctions and basal cisterns appear unremarkable. Age-appropriate cerebral volume loss . Age-appropriate prominence of the ventricular system due to cerebral volume loss. Diffusion-weighte d imaging shows restricted diffusion within the right basal ganglia involving the anterior limb of th e internal capsule and lentiform nucleus. There is corresponding T2/FLAIR hyperintensity. Intracrania l arterial flow voids are maintained. Midline structures show no abnormality. Confluent and patchy ar eas of high T2/FLAIR signal intensity are seen within the periventricular and subcortical white matte r. Additional involvement of the dustin. The susceptibility weighted images. Couple of foci of blooming artifact from prior hemosiderin deposition within the right cerebellum and left temporal lobe. The bone marrow signal is within normal limits. Mild mucosal thickening of the left maxillary sinus w ith minimal mucosal thickening of the right maxillary sinus. Bilateral mastoid effusions. Bilateral a phakia. IMPRESSION: 1. Acute/subacute ischemia involving the right lentiform nucleus and anterior limb of the internal ca psule as seen on prior CT. 2. Moderate nonspecific white matter changes, likely related to small vessel ischemic disease. [facility], , 05/01/2024 2:15 PM
--- NOTE | 2024-05-01 14:48 | P.PN ---
Subjective Progress Note Date: 05/01/24 The patient is an 84-year-old male who is seen in neurologic follow-up on May 01, 2024, in cross coverage for Dr. Olivier, in collaboration with Magaly Rodrigues, via teleneurology. Patient's family is present at the bedside at the time of the evaluation. The patient reports that he came into the hospital because of facial weakness. He initially states that he had weakness in the right side of his face. According to family, it was left-sided facial weakness. The patient also notes weakness in his right arm and leg. In the emergency department, CT scan of the brain was performed. There is repor jhonny evidence of an acute infarct in the right basal ganglia. The patient was admitted for further workup. For further details of history, please see Dr. Mao shows original neurology consultation Objective - Vital Signs Vital signs: Vital Signs Temp 98.5 F 05/01/24 09:00 Pulse 70 05/01/24 09:00 Resp 18 05/01/24 09:00 BP 164/80 05/01/24 09:00 Pulse Ox 94 L 05/01/24 09:00 FiO2 Intake & Output 04/30/24 05/01/24 05/01/24 18:59 06:59 18:59 Intake Total 10 10 Balance 10 10 Weight 92.986 kg 93.5 kg Intake: IV 10 10 Invasive Line 1 10 10 Other: Voiding Method Diaper Diaper # Voids 2 1 - Exam General: The patient is seated in the bedside chair. He is well-nourished, well-developed and in no acute distress. HEENT: Head is atraumatic, normocephalic. Fundus not visualized. There is no scleral icterus. Mucous membranes are moist. Neurological examination Mental status: The patient is awake, alert and oriented x 3. He is able to accurately state his name, date of , location, current year, state and president. The patient is unable to report the city if he is in. Patient speech is clear. There is no dysarthria or aphasia Cranial nerves: Pupils are equal at 3 mm and reactive. Visual starks are full t o confrontation. Extraocular movements are intact. There is no nystagmus. Facial sensation is intact. There is a left facial droop. Hearing is diminished. Uvula and palate are midline. Shoulder shrug is diminished on the left. Tongue protrudes midline. Motor: Strength (right/left): Sketcher 4/2. Triceps 4/3. Biceps 4/2. Hip flexors 3/1. Ankle plantar and dorsiflexors 4/2. The patient has to be reminded to use his left upper and lower extremities for strength testing Sensation: There is left-sided extinction, with double simultaneous stimulation. Coordination: There is left-sided slowing of rapid alternating movements. There is a left pronator drift. Deep tendon reflexes: 2+/4+ in the bilateral upper extremities. Right patellar reflex 1+/4+. Left patellar reflex 3+/4+. Plantar responses of extensor bilaterally. Gait: Not assessed - Labs CBC & Chem 7: 05/01/24 05:52 05/01/24 05:52 Labs: Abnormal Lab Results - Last 24 Hours (Table) 04/30/24 04/30/24 04/30/24 Range/Units 07:58 07:58 12:37 RBC (4.30-5.90) m/uL Sodium (137-145) mmol/L BUN (9-20) mg/dL Creatinine (0.66-1.25) mg/dL Glucose (74-99) mg/dL POC Glucose (mg/dL) 195 H (70-110) mg/dL Hemoglobin A1c 7.2 H (<=6.0) % HDL Cholesterol 39.30 L (40.00-60.00) mg/dL 04/30/24 04/30/24 04/30/24 Range/Units 17:17 21:51 22:44 RBC (4.30-5.90) m/uL Sodium (137-145) mmol/L BUN (9-20) mg/dL Creatinine (0.66-1.25) mg/dL Glucose (74-99) mg/dL POC Glucose (mg/dL) 144 H 178 H 187 H (70-110) mg/dL Hemoglobin A1c (<=6.0) % HDL Cholesterol (40.00-60.00) mg/dL 05/01/24 05/01/24 05/01/24 Range/Units 05:52 05:52 06:00 RBC 4.19 L (4.30-5.90) m/uL Sodium 136 L (137-145) mmol/L BUN 33 H (9-20) mg/dL Creatinine 2.33 H (0.66-1.25) mg/dL Glucose 123 H (74-99) mg/dL POC Glucose (mg/dL) 139 H (70-110) mg/dL Hemoglobin A1c (<=6.0) % HDL Cholesterol (40.00-60.00) mg/dL Assessment and Plan Assessment: 1. Patient is an 84-year-old male with left facial droop, left-sided weakness and left-sided neglect, consistent with a right middle cerebral artery territory ischemic infarct. CT scan of the brain was positive for a right basal ganglia infarct. In light of the patient's neglect, I would suspected that the infarct involves some of the right parietal lobe as well. 2. Likely etiology of stroke is chronic small vessel disease to due his multiple risk factors (hypertension, DM, CABG, age) and in additional right carotid stenosis. No IV thrombolytic since outside window and risk outweigh benefit. 3. Severe calcified plaque distal right internal carotid artery on CTA 4. Ongoing Hypertension 5. History of CABG 6. Ongoing diabetes mellitus Plan: 1. MRI Brain has been completed. Carotid duplex has been ordered. 2. The patient is started on ASA 81mg daily by primary team and he was given 325mg once in the ED. Prior to this he was not on antiplatelets. I also added Plavix 75mg especially with new stroke and carotid stenosis. Recommend dual antiplatelets for 21 days then monotherapy unless he has falls or bruises easily then recommend monotherapy. 3. He was started on Lipitor 80mg qhs. 4. Consulted vascular surgery team for carotid stenosis. 5. Continue neuro checks. 6. Cardiac monitoring 7. PT, OT and POLISHER ALUMINUM are consulted. 8. Will defer the rest of medical management to primary team and others specialist. 9. For DVT prophylaxis: Started subq heparin Time with Patient: Greater than 30 (45 minutes were spent caring for this patient today including, obtaining history, examining the patient, reviewing imaging, chart documentation, labs, placing orders and creating this note)
[2024-05-01 16:58] LABS: Glucose,Whole Blood 122 mg/dL (70-110)
[2024-05-01 20:09] LABS: Glucose,Whole Blood 179 mg/dL (70-110)
[2024-05-02 06:21] LABS: Glucose,Whole Blood 108 mg/dL (70-110)
[2024-05-02 07:59] LABS: African American GFR (CKD) 30 (>60 ml/min/1.73 sqM); Anion Gap 6 mmol/L; Blood Urea Nitrogen 31 mg/dL (9-20); Calcium 8.8 mg/dL (8.4-10.2); Carbon Dioxide 24 mmol/L (22-30); Chloride 107 mmol/L (98-107); Glucose 112 mg/dL (74-99); Non-African American GFR(CKD) 26 (>60 ml/min/1.73 sqM); Potassium 4.3 mmol/L (3.5-5.1); Sodium 137 mmol/L (137-145)
[2024-05-02] MEDS: METOPROLOL SUCCINATE (ER) 25 MG TAB.ER.24H PO SCH (09:15)
[2024-05-02 11:31] LABS: Glucose,Whole Blood 218 mg/dL (70-110)
--- NOTE | 2024-05-02 11:58 | P.PN ---
Subjective Progress Note Date: 05/02/24 Subjective: Seen and examined at bedside. No acute events overnight. Pertinent positives and negatives as discussed above, a complete review of systems was performed and all other systems are negative. Vitals Signs Reviewed. General: Nontoxic, no distress, appears at stated age Derm: Warm, dry Head: Atraumatic, normocephalic, symmetric Eyes: EOMI, no lid lag, anicteric sclera Mouth: No lip lesion, mucus membranes moist Cardiovascular: S1S2 reg, no murmur Lungs: CTA bilateral, no rhonchi, no rales, no accessory muscle use Abdominal: Soft, nontender to palpation, no guarding, no appreciable organomegaly Ext: No gross muscle atrophy, no edema, no contractures Neuro: Left facial droop, 3/5 left upper extremity strength, 2/5 left lower extremity strength, dysarthria Psych: Alert, oriented, appropriate affect Data Reviewed Today: Pertinent Labs: Sodium 137, potassium 4.3, creatinine 2.21 Imaging: Brain MRI shows acute/subacute ischemia involving right lentiform nucleus and anterior limb of internal capsule Assessment and Plan: Active: Acute/subacute right basal ganglia ischemic stroke Severe calcified plaque of distal right RCA on CTA -Neurology following, patient on dual antiplatelet therapy for 21 days including aspirin 81 mg, Plavix 75 mg daily, also on atorvastatin 80 mg nightly -Vascular surgery following, not recommending any acute interventions -PT/OT/speech therapy -Continue telemetry monitoring, neurochecks -Would likely benefit from inpatient rehab Ischemic cardiomyopathy, EF 45 to 50%, not in exacerbation History of CAD status post CABG CKD stage IV, stable -Patient currently on losartan 25 mg daily, metoprolol succinate 25 daily -Would not recommend aldosterone antagonist or SGLT2 inhibitor at the moment given poor renal function -Needs outpatient follow-up with his vulnerability researcher and surveyor hydrographic Recent fall Elevated CK -Continue to follow Rly-zhuymaa-wnmluybwn diabetes -Sliding scale insulin, monitor for hypoglycemia Chronic: Hypertension DVT ppx: Subcu heparin Code status: Full code Anticipated discharge place: possibly IPR Anticipated discharge time: Pending clinical course Objective - Vital Signs Vital signs: Vital Signs Temp 98.4 F 05/02/24 09:25 Pulse 57 L 05/02/24 09:25 Resp 18 05/02/24 09:25 BP 139/75 05/02/24 09:25 Pulse Ox 96 05/02/24 09:25 FiO2 Intake & Output 05/01/24 05/02/24 05/02/24 18:59 06:59 18:59 Intake Total 378 20 10 Output Total 450 550 Balance -72 -530 10 Intake: IV 20 20 10 Invasive Line 1 20 20 10 Oral 358 Output: Urine 450 550 Other: Voiding Method External Catheter Diaper Diaper External Catheter External Catheter # Voids 2 # Bowel Movements 1 - Labs CBC & Chem 7: 05/01/24 05:52 05/02/24 07:04 Labs: Abnormal Lab Results - Last 24 Hours (Table) 05/01/24 05/01/24 05/02/24 Range/Units 16:56 19:57 07:04 BUN 31 H (9-20) mg/dL Creatinine 2.21 H (0.66-1.25) mg/dL Glucose 112 H (74-99) mg/dL POC Glucose (mg/dL) 122 H 179 H (70-110) mg/dL 05/02/24 Range/Units 11:27 BUN (9-20) mg/dL Creatinine (0.66-1.25) mg/dL Glucose (74-99) mg/dL POC Glucose (mg/dL) 218 H (70-110) mg/dL
[2024-05-02 16:26] LABS: Glucose,Whole Blood 147 mg/dL (70-110)
--- NOTE | 2024-05-02 17:15 | P.PN ---
Subjective Progress Note Date: 05/02/24 The patient is an 84-year-old male who is seen in neurologic follow-up on May 02, 2024, in cross coverage for Dr. Olivier, in collaboration with Magaly Rodrigues, via teleneurology. Patient's family is present at the bedside at the time of the evaluation. There have been no neurological changes overnight. Patient remains stable. He continues to have left-sided weakness. MRI of the brain was performed yesterday. It reveals an area of acute ischemia involving the right lentiform nucleus and internal capsule. These results were discussed with the patient and his son. For further details of history, please see Dr. Olivier's original neurology consultation Objective - Vital Signs Vital signs: Vital Signs Temp 98.4 F 05/02/24 09:25 Pulse 62 05/02/24 13:17 Resp 18 05/02/24 13:17 BP 143/76 05/02/24 12:00 Pulse Ox 98 05/02/24 12:00 FiO2 Intake & Output 05/01/24 05/02/24 05/02/24 18:59 06:59 18:59 Intake Total 378 20 20 Output Total 450 550 Balance -72 -530 20 Intake: IV 20 20 20 Invasive Line 1 20 20 20 Oral 358 Output: Urine 450 550 Other: Voiding Method External Catheter Diaper Diaper External Catheter External Catheter # Voids 2 # Bowel Movements 1 2 - Exam General: The patient is reclining in the bed. He is well-nourished, well- developed and in no acute distress. HEENT: Head is atraumatic, normocephalic. Fundus not visualized. There is no scleral icterus. Mucous membranes are moist. Neurological examination Mental status: The patient is sleeping. He is arousable Cranial nerves: Pupils are equal at 3 mm and reactive. Visual starks are full to confrontation. Extraocular movements are intact. There is no nystagmus. Facial sensation is intact. There is a left facial droop. Hearing is diminished. Uvula and palate are midline. Shoulder shrug is diminished on the left. Tongue protrudes midline. Motor: Strength (right/left): Shafting Worker 4/2. Triceps 4/3. Biceps 4/2. Hip flexors 3/1. Ankle plantar and dorsiflexors 4/2. The patient has to be reminded to use his left upper and lower extremities for strength testing - Labs CBC & Chem 7: 05/01/24 05:52 05/02/24 07:04 Labs: Abnormal Lab Results - Last 24 Hours (Table) 05/01/24 05/01/24 05/02/24 Range/Units 16:56 19:57 07:04 BUN 31 H (9-20) mg/dL Creatinine 2.21 H (0.66-1.25) mg/dL Glucose 112 H (74-99) mg/dL POC Glucose (mg/dL) 122 H 179 H (70-110) mg/dL 05/02/24 Range/Units 11:27 BUN (9-20) mg/dL Creatinine (0.66-1.25) mg/dL Glucose (74-99) mg/dL POC Glucose (mg/dL) 218 H (70-110) mg/dL Assessment and Plan Assessment: 1. Patient is an 84-year-old male with left facial droop, left-sided weakness and left-sided neglect, consistent with a right middle cerebral artery territory ischemic infarct. CT scan of the brain was positive for a right basal ganglia infarct. MRI of the brain is positive for acute ischemia involving the right lentiform nucleus and internal capsule 2. Likely etiology of stroke is chronic small vessel disease to due his multiple risk factors (hypertension, DM, CABG, age) and in additional right c arotid stenosis. No IV thrombolytic since outside window and risk outweigh benefit. 3. Severe calcified plaque distal right internal carotid artery on CTA. Carotid Doppler reports less than 50% stenosis in the same region 4. Ongoing Hypertension 5. History of CABG 6. Ongoing diabetes mellitus Plan: 1. The patient is started on ASA 81mg daily by primary team and he was given 325mg once in the ED. Prior to this he was not on antiplatelets. I also added Plavix 75mg especially with new stroke and carotid stenosis. Recommend dual antiplatelets for 21 days then monotherapy unless he has falls or bruises easily then recommend monotherapy. 2. He was started on Lipitor 80mg qhs. 3. Appreciate vascular surgery input. 4. Continue neuro checks. 5. Cardiac monitoring 6. PT, OT and SUBSTATION DESIGNER are consulted-recommendations have been made for subacute rehab placement 8. Will defer the rest of medical management to primary team and others specialist. 9. For DVT prophylaxis: Started subq heparin Time with Patient: Greater than 30 (40 minutes were spent caring for this patient today including, obtaining an interim history, examining the patient, reviewing imaging, chart documentation, labs, placing orders and creating this note)
[2024-05-02 20:09] LABS: Glucose,Whole Blood 151 mg/dL (70-110)
[2024-05-03 06:26] LABS: Glucose,Whole Blood 109 mg/dL (70-110)
[2024-05-03] MEDS: amLODIPine 5 MG TAB PO SCH (09:57)
--- NOTE | 2024-05-03 12:03 | P.PN ---
Subjective Progress Note Date: 05/03/24 Patient is a 84-year-old male with type 2 diabetes, CAD s/p CABG presenting with left-sided weakness. Patient accompanied by family, majority of history obtained from family. They state that his onset of symptoms were as around 34 AM this morning. Patient's son says that he normally gets up in the middle the night to urinate, and was at that time where he noticed some left-sided facial weakness and left arm and leg weakness along with slurred speech. Denies any confusion or any previous history of stroke. Patient denies any fever, chills, headache, dizziness, chest pain, heart palpitation, shortness of breath, nausea, vomiting, diarrhea, abdominal pain, trauma. T98.4 F, W[place] 83, RR 18, BP 143/85, O2 sat 99% on room air EKG independently interpreted displaying sinus rhythm with first-degree AV block, rate 70 bpm, QTc 391 ms, [place] interval 226 ms CXR independently interpreted displaying cardiomegaly, no acute cardiopulmonary process CT angio head and neck displaying no evidence of large vessel occlusion or aneurysm at the level of the [place], no evidence of significant stenosis at the carotid bifurcations, severe calcified plaque distal mid right internal carotid artery Brain CT displaying probable evolving acute infarct right internal capsule extending to the central basal ganglia, no acute intracranial hemorrhage or midline shift 04/30/2024 patient seen and examined at bedside. No acute events overnight. No new complaints. Labs today showed WBC 9, hemoglobin 13, platelet count 1 92,000, sodium 134, potassium 4.1, chloride 104, BUN 37, creatinine 2.5, glucose 145, calcium 8.8, magnesium 2.1. Lipid panel showed low HDL at 39, all other values are normal. Liver enzyme tests are normal. TSH 1.29. 05/01/2024 patient seen and examined at bedside. No acute events overnight. No new complaints. Labs: WBC 8.5, hemoglobin 13.5, platelet count 1 92,000, sodium 136, potassium 4.1, bicarb 23, BUN 33, creatinine 2.33, glucose 123, calcium 9.3. A1c 7.2 Imaging: Echocardiogram showed ejection fraction estimated 45 to 50%, severe right atrial dilatation, moderate right ventricular dilatation with right ventricular systolic pressure within normal limits. Bilateral carotid ultrasound showed less than 50% stenosis of carotid bifurcation on the right. Seen and examined at bedside. No acute events overnight. Brain MRI shows acute/subacute ischemia involving right lentiform nucleus and anterior limb of internal capsule 05/03/2024 patient seen and examined at bedside. No acute events overnight. No new complaints. Review of systems: Pertinent positives and negatives as discussed in HPI, a complete review of systems was performed and all other systems are negative. Physical examination: Vital signs reviewed General: non toxic, no distress, appears at stated age, well nourished, room air Derm: no unusual rashes/lesions, warm Head: atraumatic, normocephalic, symmetric Eyes: EOMI, anicteric sclera, pupils equal round reactive to light ENT: Nose and ears atraumatic Mouth: no lip lesion, mucus membranes moist Cardiovascular: S1S2 reg, no murmur, positive dorsalis pedis pulse bilateral, no edema Lungs: CTA bilateral, no rhonchi, no rales, no accessory muscle use Abdominal: soft, nontender to palpation, no guarding Neuro: Left-sided facial palsy that does not involve the forehead, 3 out of 5 left upper extremity weakness, 3 out of 5 left lower extremity weakness, slurred speech Psych: Alert, oriented to person, place, and time Assessment/Plan: Patient is a 84-year-old male with type 2 diabetes, CAD s/p CABG presenting with left-sided weakness and slurred speech secondary to acute CVA. #. Subacute/acute ischemic stroke of the right basal ganglia #. Severe calcified plaque of distal R ICA on CT angiography -Brain CT displaying probable evolving acute infarct right internal capsule extending to the central basal ganglia, no acute intracranial hemorrhage or midline shift -Brain MRI shows acute/subacute ischemia involving right lentiform nucleus and anterior limb of internal capsule -Continue with aspirin 81 mg p.o. daily -Atorvastatin 80 mg p.o. at bedtime -Neurochecks -Fall precautions -Cardiac telemetry -PT/OT consult -Speech therapy consult -Neurology consult. Initiated Plavix p.o. daily -Consulted vascular surgery. No acute interventions recommended. -Inpatient rehab consulted as patient would likely benefit from inpatient rehab #. Ischemic cardiomyopathy EF 45-50% -Echocardiogram showed ejection fraction estimated 45 to 50%. No prior echo to compare. No known diagnosis of HF -Patient not experiencing any cardiac symptoms -Would not recommend aldosterone antagonist or SGLT2 inhibitor at the moment given poor renal function -Follow-up with cardiology on outpatient #. Elevated creatinine kinase -Patient had a recent fall around last week -Repeat creatinine kinase pending Chronic conditions: #. Awb-[id number]-lmwnccbrp diabetes -Insulin SQ sliding scale -Accu-Cheks ACHS -Monitor for hypoglycemia -A1c 7.2 -Hold home oral medication #. CAD #. Hypertension -Continue metoprolol 25 mg p.o. daily to avoid rebound tachycardia -Restarted Cozaar -Started Norvasc 5mg PO daily -Metoprolol succinate 25mg po daily #. Chronic kidney disease stage IV, stable -Patient at baseline creatinine -monitor urine output -IV fluids discontinued F: oral intake N: dyphagia diet A: fall precautions. Ambulate with assistance DVT prophylaxis: Heparin subcu Loree Fisher MD PGY-1/[employer] Dictation was produced using [employer] dictation software. please excuse any grammatical, word or spelling errors. Patient did have an unwitnessed fall, led to left forearm abrasion, no head trauma. I have seen and evaluated the patient today. Discussed with the resident and agree with the residents finding and plan as documented in the resident's note. Changes highlighted in blue font. Objective - Vital Signs Vital signs: Vital Signs Temp 98.2 F 05/03/24 08:10 Pulse 92 05/03/24 11:20 Resp 16 05/03/24 11:20 BP 153/80 05/03/24 11:20 Pulse Ox 97 05/03/24 11:20 FiO2 Intake & Output 05/02/24 05/03/24 05/03/24 18:59 06:59 18:59 Intake Total 138 20 Output Total 300 500 Balance -162 -480 Weight 94.5 kg Intake: IV 20 20 Invasive Line 1 20 20 Oral 118 Output: Urine 300 500 Other: Voiding Method Diaper Diaper External Catheter External Catheter # Bowel Movements 1 1 - Labs CBC & Chem 7: 05/01/24 05:52 05/02/24 07:04 Labs: Abnormal Lab Results - Last 24 Hours (Table) 05/02/24 05/02/24 Range/Units 16:24 20:08 POC Glucose (mg/dL) 147 H 151 H (70-110) mg/dL
[2024-05-03 13:08] LABS: Glucose,Whole Blood 208 mg/dL (70-110)
--- NOTE | 2024-05-03 15:07 | P.CONS ---
History of Present Illness - Reason for Consult Consult date: 05/03/24 rehab recommendations - History of Present Illness Mr Espinoza is an 84 y/o right handed male who lives with his and adult son in a single story duplex with 2 lottie from [facility]. Patient's son installing a handrail. Prior to admission, patient was independent with mobility, occasionally used his cane. His son has been assisting with showers for the past 2-3 months for safety. He does not drive, son drives. Patient's has beginning stages of dementia but is in good physical health. Son is available 09/09 as he is their caregiver. Patient with type 2 diabetes, CAD s/p CABG presenting with left-sided weakness, facial droop and difficulty with speech on 04/29/24, symptoms were as around 34 AM. Patient's son says that he normally gets up in the middle the night to urinate, and was at that time where he noticed some left-sided facial weakness and left arm and leg weakness along with slurred speech. T98.4 F, [place] 83, RR 18, BP 143/85, O2 sat 99% on room airEKG independently interpreted displaying sinus rhythm with first-degree AV block, rate 70 bpm, QTc 391 ms, [place] interval 226 ms. CXR independently interpreted displaying cardiomegaly, no acute cardiopulmonary process. CT angio head and neck displaying no evidence of large vessel occlusion or aneurysm at the level of the [place], no evidence of significant stenosis at the carotid bifurcations, severe calcified plaque distal mid right internal carotid artery. Brain CT displaying probable evolving acute infarct right internal capsule extending to the central basal ganglia, no acute intracranial hemorrhage or midline shift. Echocardiogram showed ejection fraction estimated 45 to 50%, severe right atrial dilatation, moderate right ventricular dilatation with right ventricular systolic pressure within normal limits. Bilateral carotid ultrasound showed less than 50% stenosis of carotid bifurcation on the right. Vascular surgery was consulted, no surgical intervention recommended. Brain MRI shows acute/subacute ischemia involving right lentiform nucleus and anterior limb of internal capsule. PM&R consulted for rehab recommendations. Patient was seen by therapies on 05/01/24: total assist with bathing, dressing, grooming mod A, eating min A, gait 2 ft max A, dysphagia II with NTL, no straws, 1:1 supervision, [place] [facility] [place] 05[place]03: Patient resting in bed, son Chaitanya, at bedside. Patient's son reports he has improved significantly in his movement and speech from this weekend. Patient did try to attempt to take himself to the bathroom for a BM this morning and had a fall. He denies CP, SOB, and abdominal pain. He has no current complaints of pain. Left side is weaker than right. Patient denies issues with speech, per patient's son, speech seems delayed but much clearer. Review of Systems reviewed as above in subjective Past Medical History Past Medical History: Diabetes Mellitus History of Any Multi-Drug Resistant Organisms: None Reported Past Surgical History: Coronary Bypass/CABG Additional Past Surgical History / Comment(s): triple bypass Past Anesthesia/Blood Transfusion Reactions: No Reported Reaction Past Psychological History: No Psychological Hx Reported Smoking Status: Never smoker Past Drug Use History: None Reported Medications and Allergies Home Medications Medication Instructions Recorded Confirmed Type Glimepiride [Amaryl] 1 mg PO DAILY 03/11/24 04/29/24 History Ketorolac 0.5% Ophth Soln [Acular 1 drops LEFT EYE DAILY 03/11/24 04/29/24 History 0.5%] Latanoprost [Latanoprost 0.005%] 1 drop BOTH EYES HS 03/11/24 04/29/24 History Losartan [Cozaar] 12.5 mg PO DAILY 03/11/24 04/29/24 History Metoprolol Tartrate [Lopressor] 25 mg PO DAILY 03/11/24 04/29/24 History Pioglitazone [Actos] 45 mg PO DAILY 03/11/24 04/29/24 History calcitrioL [Rocaltrol] 0.25 mcg PO TH 03/11/24 04/29/24 History methocarbamoL [Robaxin] 500 mg PO Q12H PRN 03/11/24 04/29/24 History prednisoLONE ACETATE 1% OPHTH 1 drop LEFT EYE DAILY 03/11/24 04/29/24 History [Pred Forte 1%] sitaGLIPtin [Januvia] 100 mg PO DAILY 03/11/24 04/29/24 History Allergies Allergy/AdvReac Type Severity Reaction Status Date / Time No Known Allergies Allergy Verified 04/29/24 19:32 Physical Exam Vitals: Vital Signs Temp Pulse Resp BP Pulse Ox 05/03/24 11:20 92 16 153/80 97 05/03/24 08:10 98.2 F 58 L 16 160/76 99 05/03/24 04:25 60 17 146/75 96 05/02/24 23:00 58 L 16 150/72 97 05/02/24 20:45 97.6 F 57 L 17 151/77 99 05/02/24 15:48 98.5 F 60 18 136/70 97 Intake and Output 05/02/24 05/03/24 05/03/24 22:59 06:59 14:59 Intake Total 10 10 240 Output Total 300 500 200 Balance -290 -490 40 Intake: IV 10 10 Invasive Line 1 10 10 Oral 240 Output: Urine 300 500 200 Other: Voiding Method Diaper Diaper External Catheter External Catheter # Bowel Movements 1 1 Weight 94.5 kg General: WDWN obese elderly male, laying in bed, alert, NAD but appears fatigued HEENT: head normocephalic, atraumatic; moist mucous membranes, [place] CV: monitor tech on, no acute cardiac distress Lungs: +wheezing, even and non labored respirations on RA. Abdomen: soft, NT, ND MSK: Decreased bilateral shoulder ROM, left index DIP absent MMT: RUE SABD/EF/EE/HG 5/5, L SABD 4-/5, L EF 4+/5, L EE 4/5, L HG 4/5; R LE HF/ KE/DF 5/5, L HF 4-/5, L KE 4-/5, L DF 5-/5 R ankle clonus 3 beats, babinski negative. Right hand tremor Neuro: Alert & Oriented x 1 (self), Patient's son reports he wouldnt be able to tell the year, month is variable, patient reports he is at home Speech is clear and fluent, slow processing. Some difficulty following 3 step commands, able to follow 2 step commands CN: Left facial droop Sensation intact to light touch bilateral UE and LEs Psych: mood calm, affect flat Extremities: calves supple, non tender, no LE edema Skin: intact where exposed except for left arm abrasion-wrapped with Kerlix Results CBC & Chem 7: 05/01/24 05:52 05/02/24 07:04 Labs: Abnormal Lab Results - Last 24 Hours (Table) 05/02/24 05/02/24 05/03/24 Range/Units 16:24 20:08 13:07 POC Glucose (mg/dL) 147 H 151 H 208 H (70-110) mg/dL Assessment and Plan Assessment: #. Left hemiparesis secondary to Subacute/acute ischemic stroke of the right basal ganglia/ internal capsule, non dominant side -Brain CT displaying probable evolving acute infarct right internal capsule extending to the central basal ganglia, no acute intracranial hemorrhage or midline shift -Brain MRI shows acute/subacute ischemia involving right lentiform nucleus and anterior limb of internal capsule -ASA, statin, Plavix #Dysphagia secondary to above -Dysphagia II diet with NTL, no straws, meds in puree, 1:1 supervision #Expressive Aphasia -patient with slow processing, speech is clear and appropriate #Left side neglect #Impaired gait and ADLs secondary to above #Fall -patient had fall while inpatient as patient attempted to take himself to the bathroom for BM. He did sustain a left arm skin tear -fall precautions #. Severe calcified plaque of distal R ICA on CT angiography - vascular surgery. No acute interventions recommended. #. Ischemic cardiomyopathy EF 45-50% -Echocardiogram showed ejection fraction estimated 45 to 50%. No prior echo to compare. #. Elevated creatinine kinase -Patient had a recent fall around last week # Comorbidities: Sly-ovqozwx-brwejxcxv diabetes (A1C 7.2), CAD, Hypertension, Chronic kidney disease stage IV, chronic low back pain #DVT prophylaxis: Heparin subcu #Pain Management -Tylenol prn # Your medical dx and management Dispo: Discussed with patient and his son, Chaitanya, as well as Case Management Pretty. Patient is performing below his prior baseline level of function. Patient is motivated and willing to participate in IPR program. Highly recommending IPR for continued rehab as patient's requires the medical attention given on IPR due to complexity of his case. He will require insurance authorization. Patient seen and examined in collaboration with Dr Stiles. Patient discussed with KINGA Lemus; agree with above. Thank you for consulting our services
[2024-05-03 16:45] LABS: Glucose,Whole Blood 190 mg/dL (70-110)
[2024-05-03 20:28] LABS: Glucose,Whole Blood 222 mg/dL (70-110)
[2024-05-04] MEDS: ACETAMINOPHEN TAB 325 MG TAB PO PRN (01:30)
[2024-05-04 05:14] LABS: African American GFR (CKD) 30 (>60 ml/min/1.73 sqM); Anion Gap 11 mmol/L; Blood Urea Nitrogen 31 mg/dL (9-20); Calcium 9.1 mg/dL (8.4-10.2); Carbon Dioxide 19 mmol/L (22-30); Chloride 104 mmol/L (98-107); Glucose 191 mg/dL (74-99); Non-African American GFR(CKD) 26 (>60 ml/min/1.73 sqM); Potassium 4.5 mmol/L (3.5-5.1); Sodium 134 mmol/L (137-145)
[2024-05-04 08:10] LABS: Glucose,Whole Blood 158 mg/dL (70-110)
[2024-05-04] MEDS: INSULIN GLARGINE (LANTUS) 100 UNIT/ML SYR SQ STA (08:44)
--- NOTE | 2024-05-04 11:11 | P.PN ---
Subjective Progress Note Date: 05/03/24 Patient was initially seen by Dr. Olivier, and then followed up with Dr. Horan. Please refer to their notes for details. Patient is a 84-year-old male with left facial droop, left arm weakness and CT and MRI confirmed right basal ganglia ischemic stroke. Patient does have right carotid stenosis and vascular surgery on board. Patient was seen for a follow-up. Patient is laying comfortably in the bed. Patient denies headache. He states he is feeling "good". Objective - Vital Signs Vital signs: Vital Signs Temp 98.5 F 05/03/24 18:01 Pulse 63 05/03/24 18:01 Resp 16 05/03/24 18:01 BP 162/75 05/03/24 18:01 Pulse Ox 97 05/03/24 18:01 FiO2 Intake & Output 05/03/24 05/03/24 05/04/24 06:59 18:59 06:59 Intake Total 20 240 Output Total 500 200 Balance -480 40 Weight 94.5 kg Intake: IV 20 Invasive Line 1 20 Oral 240 Output: Urine 500 200 Other: Voiding Method Diaper Diaper External Catheter External Catheter # Bowel Movements 1 1 - Exam Patient is alert and awake, laying comfortably in the bed. Patient has very delayed response time, slow mentation. He was able to name some objects like pen, ear, but not the earlobe. He knows that he is in [place] in [place], could not tell the month or the year. Limited speech was clear. On muscle strength testing patient has left upper arm drift. His strength is normal in the biceps and triceps bilaterally. Deltoid is 4 on the right, 4+5-on the left. Suspect some problem with the right shoulder. Ankle dorsiflexion is 5 bilaterally. No ataxia although he was very slow. Sensory to touch is equal. He did not cooperate for neglect testing. Patient has some tremors of the right arm. - Labs CBC & Chem 7: 05/01/24 05:52 05/04/24 04:29 Labs: Abnormal Lab Results - Last 24 Hours (Table) 05/02/24 05/03/24 05/03/24 Range/Units 20:08 13:07 16:43 POC Glucose (mg/dL) 151 H 208 H 190 H (70-110) mg/dL Assessment and Plan Assessment: 1. Patient is an 84-year-old male with left facial droop, left-sided weakness and left-sided neglect, consistent with a right middle cerebral artery territory ischemic infarct. CT scan of the brain was positive for a right basal ganglia infarct. MRI of the brain is positive for acute ischemia involving the right lentiform nucleus and internal capsule 2. Likely etiology of stroke is chronic small vessel disease to due his multiple risk factors (hypertension, DM, CABG, age) and in additional right carotid stenosis. No IV thrombolytic since outside window and risk outweigh benefit. 3. Severe calcified plaque distal right internal carotid artery on CTA. Ellis tid Doppler reports less than 50% stenosis in the same region 4. Ongoing Hypertension 5. History of CABG 6. Ongoing diabetes mellitus Plan: 1. The patient is started on ASA 81mg daily by primary team and he was given 325mg once in the ED. Prior to this he was not on antiplatelets. Dr. Olivier also added Plavix 75mg especially with new stroke and carotid stenosis. He also recommended dual antiplatelets for 21 days then monotherapy. 2. He was started on Lipitor 80mg qhs (not on statins at home). Lipid panel with TG 91, cholestrol 136, LDL 78 and HDL 39. 3. Recommend 30-day event monitoring rule out paroxysmal atrial fibrillation. 4. Continue neuro checks every shift. 5. Cardiac monitoring 6. PT, OT and POLICE LIEUTENANT PATROL are consulted. Patient recommended inpatient rehab by PMNR. 8. Will defer the rest of medical management to primary team and others specialist. 9. For DVT prophylaxis: Started subq heparin 10. CTA head and neck: No evidence for large vessel occlusion or aneurysm at level of [place]. Severe calcified plaque distal right internal carotid artery. 11. Hemoglobin A1c 7.2. Recommend optimize control of diabetes to target A1c <7.0. 12. 2D echo revealed mildly impaired LV function with EF between 45 to 50%. Mild concentric LVH. Severe right atrial dilation. Mildly increased left atrial diameter. Moderate right ventricular dilation. Mild AR. Aortic valve sclerosis. Moderate aortic dilation at the level of the sinuses. 13. Carotid Doppler revealed less than 50% stenosis of the carotid bifurcation on either side. Antegrade flow in both vertebral arteries. 14. Vascular surgery input appreciated. No further vascular surgical intervention recommended because of normal carotid Doppler ultrasound, with calcified plaque distal right ICA. 15. Neurologically clear for transfer to rehab facility.
--- NOTE | 2024-05-04 11:23 | P.PN ---
Subjective Progress Note Date: 05/04/24 Patient is a 84-year-old male with type 2 diabetes, CAD s/p CABG presenting with left-sided weakness. Patient accompanied by family, majority of history obtained from family. They state that his onset of symptoms were as around 34 AM this morning. Patient's son says that he normally gets up in the middle the night to urinate, and was at that time where he noticed some left-sided facial weakness and left arm and leg weakness along with slurred speech. Denies any confusion or any previous history of stroke. Patient denies any fever, chills, headache, dizziness, chest pain, heart palpitation, shortness of breath, nausea, vomiting, diarrhea, abdominal pain, trauma. T98.4 F, [place] 83, RR 18, BP 143/85, O2 sat 99% on room air EKG independently interpreted displaying sinus rhythm with first-degree AV block, rate 70 bpm, QTc 391 ms, [place] interval 226 ms CXR independently interpreted displaying cardiomegaly, no acute cardiopulmonary process CT angio head and neck displaying no evidence of large vessel occlusion or aneurysm at the level of the [place], no evidence of significant stenosis at the carotid bifurcations, severe calcified plaque distal mid right internal carotid artery Brain CT displaying probable evolving acute infarct right internal capsule extending to the central basal ganglia, no acute intracranial hemorrhage or midline shift 04/30/2024 patient seen and examined at bedside. No acute events overnight. No new complaints. Labs today showed WBC 9, hemoglobin 13, platelet count 1 92,000, sodium 134, potassium 4.1, chloride 104, BUN 37, creatinine 2.5, glucose 145, calcium 8.8, magnesium 2.1. Lipid panel showed low HDL at 39, all other values are normal. Liver enzyme tests are normal. TSH 1.29. 05/01/2024 patient seen and examined at bedside. No acute events overnight. No new complaints. Labs: WBC 8.5, hemoglobin 13.5, platelet count 1 92,000, sodium 136, potassium 4.1, bicarb 23, BUN 33, creatinine 2.33, glucose 123, calcium 9.3. A1c 7.2 Imaging: Echocardiogram showed ejection fraction estimated 45 to 50%, severe right atrial dilatation, moderate right ventricular dilatation with right ventricular systolic pressure within normal limits. Bilateral carotid ultrasound showed less than 50% stenosis of carotid bifurcation on the right. Seen and examined at bedside. No acute events overnight. Brain MRI shows acute/subacute ischemia involving right lentiform nucleus and anterior limb of internal capsule 05/03/2024 patient seen and examined at bedside. No acute events overnight. No new complaints. 05/04/2024 patient seen and examined at bedside. No acute events overnight. No new complaints. Labs: Sodium 134, potassium 4.5, bicarb 19, BUN 31, creatinine 2.21, glucose 191 Review of systems: Pertinent positives and negatives as discussed in HPI, a complete review of systems was performed and all other systems are negative. Physical examination: Vital signs reviewed General: non toxic, no distress, appears at stated age, well nourished, room air Derm: no unusual rashes/lesions, warm Head: atraumatic, normocephalic, symmetric Eyes: EOMI, anicteric sclera, pupils equal round reactive to light ENT: Nose and ears atraumatic Mouth: no lip lesion, mucus membranes moist Cardiovascular: S1S2 reg, no murmur, positive dorsalis pedis pulse bilateral, no edema Lungs: CTA bilateral, no rhonchi, no rales, no accessory muscle use Abdominal: soft, nontender to palpation, no guarding Neuro: Left-sided facial palsy that does not involve the forehead, 3 out of 5 left upper extremity weakness, 3 out of 5 left lower extremity weakness, slurred speech Psych: Alert, oriented to person, place, and time Assessment/Plan: Patient is a 84-year-old male with type 2 diabetes, CAD s/p CABG presenting with left-sided weakness and slurred speech secondary to acute CVA. #. Subacute/acute ischemic stroke of the right basal ganglia #. Severe calcified plaque of distal R ICA on CT angiography -Brain CT displaying probable evolving acute infarct right internal capsule extending to the central basal ganglia, no acute intracranial hemorrhage or midline shift -Brain MRI shows acute/subacute ischemia involving right lentiform nucleus and anterior limb of internal capsule -Continue with aspirin 81 mg p.o. daily -Atorvastatin 80 mg p.o. at bedtime -Neurochecks -Fall precautions -Cardiac telemetry -PT/OT consult -Speech therapy consult -Neurology consult. Initiated Plavix p.o. daily -Consulted vascular surgery. No acute interventions recommended. -Patient will discharge on inpatient rehab. power plant manager working on discharge needs. #. Ischemic cardiomyopathy EF 45-50% -Echocardiogram showed ejection fraction estimated 45 to 50%. No prior echo to compare. No known diagnosis of HF -Patient not experiencing any cardiac symptoms -Would not recommend aldosterone antagonist or SGLT2 inhibitor at the moment given poor renal function -Follow-up with cardiology on outpatient #. Elevated creatinine kinase -Patient had a recent fall around last week -Repeat creatinine kinase pending Chronic conditions: #. Wko-oimwchb-zxdckahqh diabetes -Insulin SQ sliding scale -Glargine 10 units daily -Accu-Cheks ACHS -Monitor for hypoglycemia -A1c 7.2 -Hold home oral medication #. CAD #. Hypertension -Continue metoprolol 25 mg p.o. daily to avoid rebound tachycardia -Restarted Cozaar -Started Norvasc 5mg PO daily -Metoprolol succinate 25mg po daily #. Chronic kidney disease stage IV, stable -Patient at baseline creatinine -monitor urine output -IV fluids discontinued F: oral intake N: dyphagia diet A: fall precautions. Ambulate with assistance DVT prophylaxis: Heparin subcu Loree Fisher MD PGY-1/Visual [facility] Internal Medicine Dictation was produced using [employer] dictation software. please excuse any grammatical, word or spelling errors. I have seen and evaluated the patient today. Discussed with the resident and agree with the residents finding and plan as documented in the resident's note. Changes highlighted in blue font. Objective - Vital Signs Vital signs: Vital Signs Temp 98.4 F 05/04/24 08:00 Pulse 55 L 05/04/24 08:00 Resp 16 05/04/24 08:00 BP 134/66 05/04/24 08:00 Pulse Ox 97 05/04/24 08:00 FiO2 Intake & Output 05/03/24 05/04/24 05/04/24 18:59 06:59 18:59 Intake Total 240 Output Total 200 400 Balance 40 -400 Intake: Oral 240 Output: Urine 200 400 Other: Voiding Method Diaper Diaper External Catheter External Catheter # Bowel Movements 1 1 - Labs CBC & Chem 7: 05/01/24 05:52 05/04/24 04:29 Labs: Abnormal Lab Results - Last 24 Hours (Table) 05/03/24 05/03/24 05/03/24 Range/Units 13:07 16:43 20:27 Sodium (137-145) mmol/L Carbon Dioxide (22-30) mmol/L BUN (9-20) mg/dL Creatinine (0.66-1.25) mg/dL Glucose (74-99) mg/dL POC Glucose (mg/dL) 208 H 190 H 222 H (70-110) mg/dL 05/04/24 05/04/24 Range/Units 04:29 08:08 Sodium 134 L (137-145) mmol/L Carbon Dioxide 19 L (22-30) mmol/L BUN 31 H (9-20) mg/dL Creatinine 2.21 H (0.66-1.25) mg/dL Glucose 191 H (74-99) mg/dL POC Glucose (mg/dL) 158 H (70-110) mg/dL
[2024-05-04 12:15] LABS: Glucose,Whole Blood 192 mg/dL (70-110)
[2024-05-04] MEDS ORDERED: NALOXONE 0.4 MG/ML 1 ML VIAL IVP PRN (15:09)
[2024-05-04] MEDS ORDERED: IPRATROPIUM-ALBUTEROL 3 ML NEB INHALATION PRN (15:09)
[2024-05-04] MEDS: predniSONE 20 MG TAB PO SCH (15:51)
--- NOTE | 2024-05-04 16:06 | P.PN ---
Subjective Progress Note Date: 05/04/24 Mr Espinoza is an 84 y/o right handed male who lives with his and adult son in a single story duplex with 2 lottie from [facility]. Patient's son installing a handrail. Prior to admission, patient was independent with mobility, occasionally used his cane. His son has been assisting with showers for the past 2-3 months for safety. He does not drive, son drives. Patient's has beginning stages of dementia but is in good physical health. Son is available 09/09 as he is their caregiver. Patient with type 2 diabetes, CAD s/p CABG presenting with left-sided weakness, facial droop and difficulty with speech on 04/29/24, symptoms were as around 34 AM. Patient's son says that he normally gets up in the middle the night to urinate, and was at that time where he noticed some left-sided facial weakness and left arm and leg weakness along with slurred speech. T98.4 F, [place] 83, RR 18, BP 143/85, O2 sat 99% on room airEKG independently interpreted displaying sinus rhythm with first-degree AV block, rate 70 bpm, QTc 391 ms, [place] interval 226 ms. CXR independently interpreted displaying cardiomegaly, no acute cardiopulmonary process. CT angio head and neck displaying no evidence of large vessel occlusion or aneurysm at the level of the [place], no evidence of significant stenosis at the carotid bifurcations, severe calcified plaque distal mid right internal carotid artery. Brain CT displaying probable evolving acute infarct right internal capsule extending to the central basal ganglia, no acute intracranial hemorrhage or midline shift. Echocardiogram showed ejection fraction estimated 45 to 50%, severe right atrial dilatation, moderate right ventricular dilatation with right ventricular systolic pressure within normal limits. Bilateral carotid ultrasound showed less than 50% stenosis of carotid bifurcation on the right. Vascular surgery was consulted, no surgical intervention recommended. Brain MRI shows acute/subacute ischemia involving right lentiform nucleus and anterior limb of internal capsule. PM&R consulted for rehab recommendations. Patient was seen by therapies on 05/01/24: total assist with bathing, dressing, grooming mod A, eating min A, gait 2 ft max A, dysphagia II with NTL, no straws, 1:1 supervision, meds in [facility]. 05/03: Patient resting in bed, son Chaitanya, at bedside. Patient's son reports he has improved significantly in his movement and speech from this weekend. Patient did try to attempt to take himself to the bathroom for a BM this morning and had a fall. He denies CP, SOB, and abdominal pain. He has no current complaints of pain. Left side is weaker than right. Patient denies issues with speech, per patient's son, speech seems delayed but much clearer. Therapy Progress: Max assist with bed mobility and transfer, UB dressing Mod A, LB dressing Max A, eating supervision, Gait 12 ft Mod A RW 05/04: Patient is fatigued. Nurse reports he was up in the chair today. He denies CP and abdominal pain. He admits to SOB and cough. Per nursing he attempted water by straw and was coughing. He is still on NTL. He has no complaints of pain, left side weaker than right. Son has no concerns at this time. Still pending insurance approval for IPR. Objective - Vital Signs Vital signs: Vital Signs Temp 97 F L 05/04/24 13:03 Pulse 65 05/04/24 13:03 Resp 16 05/04/24 13:03 BP 153/69 05/04/24 13:03 Pulse Ox 99 05/04/24 13:03 FiO2 Intake & Output 05/03/24 05/04/24 05/04/24 18:59 06:59 18:59 Intake Total 240 780 Output Total 200 400 Balance 40 -400 780 Intake: Oral 240 780 Output: Urine 200 400 Other: Voiding Method Diaper Diaper Diaper External Catheter External Catheter External Catheter # Voids 2 # Bowel Movements 1 1 1 - Exam General: WDWN obese elderly male, laying in bed, semi alert, NAD but appears fatigued, Son at bedside HEENT: head normocephalic, atraumatic; moist mucous membranes, [place] CV: no acute cardiac distress Lungs: +wheezing, even and non labored respirations on RA. Abdomen: soft, NT, slightly rounded/distended MSK: Decreased bilateral shoulder ROM, left index DIP absent, left hemiparesis MMT: RUE EF/EE/HG 5/5, L EF 4+/5, L EE 4/5, L HG 4/5; R LE HF/ KE/DF 4+/5, L HF 3-/5, L KE 3/5, L DF 4/5 Right hand tremor Neuro: Alert & Oriented x 1 (self) Speech is clear and fluent, slow processing. Some difficulty following 3 step commands, able to follow 2 step commands CN: Left facial droop Psych: mood calm, affect flat Extremities: calves supple, non tender, no LE edema Skin: intact where exposed except for left arm abrasion - Labs CBC & Chem 7: 05/01/24 05:52 05/04/24 04:29 Labs: Abnormal Lab Results - Last 24 Hours (Table) 05/03/24 05/03/24 05/04/24 Range/Units 16:43 20:27 04:29 Sodium 134 L (137-145) mmol/L Carbon Dioxide 19 L (22-30) mmol/L BUN 31 H (9-20) mg/dL Creatinine 2.21 H (0.66-1.25) mg/dL Glucose 191 H (74-99) mg/dL POC Glucose (mg/dL) 190 H 222 H (70-110) mg/dL 05/04/24 05/04/24 Range/Units 08:08 12:11 Sodium (137-145) mmol/L Carbon Dioxide (22-30) mmol/L BUN (9-20) mg/dL Creatinine (0.66-1.25) mg/dL Glucose (74-99) mg/dL POC Glucose (mg/dL) 158 H 192 H (70-110) mg/dL Assessment and Plan Assessment: #. Left hemiparesis secondary to Subacute/acute ischemic stroke of the right basal ganglia/ internal capsule, non dominant side -Brain CT displaying probable evolving acute infarct right internal capsule extending to the central basal ganglia, no acute intracranial hemorrhage or midline shift -Brain MRI shows acute/subacute ischemia involving right lentiform nucleus and anterior limb of internal capsule -ASA, statin, Plavix #Dysphagia secondary to above -Dysphagia II diet with NTL, no straws, meds in puree, 1:1 supervision #Expressive Aphasia -patient with slow processing, speech is clear and appropriate #Left side neglect #Impaired gait and ADLs secondary to above #Fall -patient had fall while inpatient as patient attempted to take himself to the bathroom for BM. He did sustain a left arm skin tear -fall precautions #. Severe calcified plaque of distal R ICA on CT angiography - vascular surgery. No acute interventions recommended. #Cough, wheezing -05/04 per nursing steroids and breathing treatment ordered #. Ischemic cardiomyopathy EF 45-50% -Echocardiogram showed ejection fraction estimated 45 to 50%. No prior echo to compare. #. Elevated creatinine kinase -Patient had a recent fall around last week # Comorbidities: Qfl-yuhdtbi-jcuigmrho diabetes (A1C 7.2), CAD, Hypertension, Chronic kidney disease stage IV, chronic low back pain #DVT prophylaxis: Heparin subcu #Pain Management -Tylenol prn # Your medical dx and management Dispo: Patient is pending IPR approval from insurance for [facility]. Patient seen and examined in collaboration with Dr Salomon Thank you for consulting our services
[2024-05-04] MEDS: IPRATROPIUM-ALBUTEROL 3 ML NEB INHALATION SCH (16:19)
--- NOTE | 2024-05-04 16:52 | XR ---
EXAMINATION TYPE: XR chest 1V DATE OF EXAM: 05/04/2024 4:42 PM COMPARISON: Prior chest radiographs, most recently dated 04/29/2024. CLINICAL INDICATION: Male, 84 years old with history of wheezing new onset; [facility] TECHNIQUE: XR chest 1V Frontal view of the chest. FINDINGS: Cardiomegaly and median sternotomy wires. Possible trace left pleural effusion and mild pulmonary vascular congestion. Fluid along the right fissure. No pneumothorax. No sizable right-sided pleural effusion. No acute osseous abnormality. IMPRESSION: Cardiomegaly with mild pulmonary vascular congestion and possible trace left effusion. [facility], , 05/04/2024 4:50 PM
[2024-05-04 17:08] LABS: Glucose,Whole Blood 175 mg/dL (70-110)
[2024-05-04] MEDS: SYMBICORT 80-4.5 MCG INHALER INHALATION SCH (20:02)
[2024-05-04 20:13] LABS: Glucose,Whole Blood 200 mg/dL (70-110)
[2024-05-05 04:15] LABS: African American GFR (CKD) 31 (>60 ml/min/1.73 sqM); Anion Gap 11 mmol/L; Blood Urea Nitrogen 31 mg/dL (9-20); Calcium 9.1 mg/dL (8.4-10.2); Carbon Dioxide 18 mmol/L (22-30); Chloride 104 mmol/L (98-107); Glucose 275 mg/dL (74-99); Non-African American GFR(CKD) 26 (>60 ml/min/1.73 sqM); Potassium 5.3 mmol/L (3.5-5.1); Sodium 133 mmol/L (137-145)
[2024-05-05] MEDS ORDERED: DEXTROSE 50% SYRINGE 50 ML IVP PRN ×2 (07:02)
[2024-05-05 07:28] LABS: Glucose,Whole Blood 279 mg/dL (70-110)
[2024-05-05] MEDS: INSULIN LISPRO (HumaLOG) 100 UNIT/ML 10 mL VL SQ SCH (08:16)
[2024-05-05] MEDS: INSULIN GLARGINE (LANTUS) 100 UNIT/ML SYR SQ SCH (08:16)
--- NOTE | 2024-05-05 10:15 | P.PN ---
Subjective Progress Note Date: 05/04/24 05/04/2024: Patient was seen for a follow-up. Patient said "how are you". He appears more alert and awake, slightly improved response time. Offers no complaints. 05/03/2024: Patient was initially seen by Dr. Olivier, and then followed up with Dr. Horan. Please refer to their notes for details. Patient is a 84-year-old male with left facial droop, left arm weakness and CT and MRI confirmed right basal ganglia ischemic stroke. Patient does have right carotid stenosis and vascular surgery on board. Patient was seen for a follow-up. Patient is laying comfortably in the bed. Patient denies headache. He states he is feeling "good". Objective - Vital Signs Vital signs: Vital Signs Temp 97 F L 05/04/24 13:03 Pulse 65 05/04/24 13:03 Resp 16 05/04/24 13:03 BP 153/69 05/04/24 13:03 Pulse Ox 99 05/04/24 13:03 FiO2 Intake & Output 05/03/24 05/04/24 05/04/24 18:59 06:59 18:59 Intake Total 240 780 Output Total 200 400 Balance 40 -400 780 Intake: Oral 240 780 Output: Urine 200 400 Other: Voiding Method Diaper Diaper Diaper External Catheter External Catheter External Catheter # Voids 2 # Bowel Movements 1 1 1 - Exam Patient is alert and awake, laying comfortably in the bed. Patient has very delayed response time, slow mentation. He was able to name some objects like pen, ear, but not the earlobe. He was able to name "knuckles". He knows that he is in [place] in [place], could not tell the month or the year. Patient does have mild dysarthria. On muscle strength testing patient has left upper arm drift. His strength is normal in the biceps and triceps bilaterally. Deltoid is 4 on the right, 4+5-on the left. Suspect some problem with the right shoulder. Ankle dorsiflexion is 5 bilaterally. No ataxia although he was very slow. Sensory to touch is equal. He did not cooperate for neglect testing. Patient has some tremors of the right arm. - Labs CBC & Chem 7: 05/01/24 05:52 05/05/24 03:14 Labs: Abnormal Lab Results - Last 24 Hours (Table) 03/17/25 03/17/25 03/18/25 Range/Units 16:43 20:27 04:29 Sodium 134 L (137-145) mmol/L Carbon Dioxide 19 L (22-30) mmol/L BUN 31 H (9-20) mg/dL Creatinine 2.21 H (0.66-1.25) mg/dL Glucose 191 H (74-99) mg/dL POC Glucose (mg/dL) 190 H 222 H (70-110) mg/dL 05/04/24 05/04/24 Range/Units 08:08 12:11 Sodium (137-145) mmol/L Carbon Dioxide (22-30) mmol/L BUN (9-20) mg/dL Creatinine (0.66-1.25) mg/dL Glucose (74-99) mg/dL POC Glucose (mg/dL) 158 H 192 H (70-110) mg/dL Assessment and Plan Assessment: 1. Patient is an 84-year-old male with left facial droop, left-sided weakness and left-sided neglect, consistent with a right middle cerebral artery territory ischemic infarct. CT scan of the brain was positive for a right basal ganglia infarct. MRI of the brain is positive for acute ischemia involving the right lentiform nucleus and internal capsule 2. Likely etiology of stroke is chronic small vessel disease to due his multiple risk factors (hypertension, DM, CABG, age) and in additional right carotid stenosis. No IV thrombolytic since outside window and risk outweigh benefit. 3. Severe calcified plaque distal right internal carotid artery on CTA. Carotid Doppler reports less than 50% stenosis in the same region 4. Ongoing Hypertension 5. History of CABG 6. Ongoing diabetes mellitus 7. Chronic renal insufficiency Plan: 1. The patient is started on ASA 81mg daily by primary team and he was given 325mg once in the ED. Prior to this he was not on antiplatelets. Dr. Olivier also added Plavix 75mg especially with new stroke and carotid stenosis. He also recommended dual antiplatelets for 21 days then monotherapy. 2. Patient was started on Lipitor 80mg qhs (not on statins at home). Lipid panel with TG 91, cholestrol 136, LDL 78 and HDL 39. 3. Recommend 30-day event monitoring rule out paroxysmal atrial fibrillation. 4. Continue neuro checks every shift. 5. Cardiac monitoring 6. PT, OT and SHIP[employer] are consulted. Patient recommended inpatient rehab by PMNR. 8. Will defer the rest of medical management to primary team and others spe cialist. 9. For DVT prophylaxis: Started subq heparin 10. CTA head and neck: No evidence for large vessel occlusion or aneurysm at level of [place]. Severe calcified plaque distal right internal carotid artery. 11. Hemoglobin A1c 7.2. Recommend optimize control of diabetes to target A1c <7.0. 12. 2D echo revealed mildly impaired LV function with EF between 45 to 50%. Mild concentric LVH. Severe right atrial dilation. Mildly increased left atrial diameter. Moderate right ventricular dilation. Mild AR. Aortic valve sclerosis. Moderate aortic dilation at the level of the sinuses. 13. Carotid Doppler revealed less than 50% stenosis of the carotid bifurcation on either side. Antegrade flow in both vertebral arteries. 14. Vascular surgery input appreciated. No further vascular surgical intervention recommended because of normal carotid Doppler ultrasound, with calcified plaque distal right ICA. 15. Neurologically clear for transfer to inpatient rehab facility at [facility] when approved by insurance.
[2024-05-05 12:39] LABS: Glucose,Whole Blood 295 mg/dL (70-110)
[2024-05-05 14:05] VITALS: BP 130/70; PULSE 94; RESP 19; TEMP 98.4
--- NOTE | 2024-05-05 14:08 | P.DS ---
Providers Date of admission: 04/29/24 20:25 Expected date of discharge: 05/05/24 Attending physician: Annamaria Medrano MD Consults: 04/29/24 20:24 Consult Physician Urgent Consulting Provider: Valdemar Olivier Consult Reason/Comments: cva Do you want consulting provider notified?: Yes 05/02/24 11:56 Consult Physician Routine Consulting Provider: Fidel Kang Consult Reason/Comments: ischemic stroke, may need IPR Do you want consulting provider notified?: Yes Primary care physician: Luciano Cooney MD Hospital Course: Discharge Diagnosis: Acute/subacute right basal ganglia ischemic stroke Severe calcified plaque of distal right RCA on CTA Ischemic cardiomyopathy, EF 45 to 50%, not in exacerbation History of CAD status post CABG CKD stage IV, stable COPD exacerbation Hospital Course: 84-year-old male with type 2 diabetes, CAD s/p CABG presenting with left-sided weakness. T98.4 F, CO 83, RR 18, BP 143/85, O2 sat 99% on room air EKG independently interpreted displaying sinus rhythm with first-degree AV block, rate 70 bpm, QTc 391 ms, CO interval 226 ms CXR independently interpreted displaying cardiomegaly, no acute cardiopulmonary process CT angio head and neck displaying no evidence of large vessel occlusion or aneurysm at the level of the [place], no evidence of significant stenosis at the carotid bifurcations, severe calcified plaque distal mid right internal carotid artery Brain CT displaying probable evolving acute infarct right internal capsule extending to the central basal ganglia, no acute intracranial hemorrhage or midline shift Patient had echocardiogram which showed EF 45 to 50%, severe right atrial dilatation, moderate right ventricular dilatation. Bilateral carotid ultrasound did not show any stenosis. Brain MRI showed acute/subacute ischemia involving right lentiform nucleus and anterior limb of internal capsule. Labs stable throughout his stay. He did have episode of COPD exacerbation. Patient has history of emphysema. Patient will be discharged on dual antiplatelet therapy for 21 days, as well as statin. Due to his poor renal function, not a good candidate for Farxiga or aldosterone antagonist. He will have to follow-up with his companion outpatient. He will also be discharged on oral steroids and Spiriva. Home sitagliptin dose reduced due to his poor renal function, continue glimepiride and pioglitazone. He will be going to [facility]. Patient seen and examined at bedside. Vital signs reviewed and stable. General: Nontoxic, no distress, appears at stated age Derm: Warm, dry Head: Atraumatic, normocephalic, symmetric Eyes: EOMI, no lid lag, anicteric sclera Mouth: No lip lesion, mucus membranes moist Cardiovascular: S1S2 reg, no murmur Lungs: CTA bilateral, no rhonchi, no rales, no accessory muscle use Abdominal: Soft, nontender to palpation, no guarding, no appreciable organomegaly Ext: No gross muscle atrophy, no edema, no contractures Neuro: Left facial droop, 3/5 left upper extremity strength, 2/5 left lower extremity strength, dysarthria Psych: Alert, oriented, appropriate affect A total of 33 minutes of time were spent preparing this complex discharge summary. Patient was discharged on 05/05/2024 at 1146. Patient Condition at Discharge: Stable Plan - Discharge Summary Discharge Rx Participant: Yes New Discharge Prescriptions: New Losartan [Cozaar] 25 mg PO DAILY #60 tab sitaGLIPtin [Januvia] 25 mg PO DAILY #60 tablet amLODIPine [Norvasc] 5 mg PO DAILY #60 tab Tiotropium 18 Mcg/Puff [Spiriva] 1 puff INHALATION DAILY #30 each Metoprolol Succinate (ER) [Toprol XL] 25 mg PO DAILY #60 tab Aspirin 81 mg PO DAILY #90 tab predniSONE [Deltasone] 40 mg PO DAILY #3 tab Atorvastatin [Lipitor] 80 mg PO HS tab Clopidogrel [Plavix] 75 mg PO DAILY #15 tab Continue prednisoLONE ACETATE 1% OPHTH [Pred Forte 1%] 1 drop LEFT EYE DAILY Glimepiride [Amaryl] 1 mg PO DAILY Latanoprost [Latanoprost 0.005%] 1 drop BOTH EYES HS Pioglitazone [Actos] 45 mg PO DAILY Ketorolac 0.5% Ophth Soln [Acular 0.5%] 1 drops LEFT EYE DAILY calcitrioL [Rocaltrol] 0.25 mcg PO TH Discontinued methocarbamoL [Robaxin] 500 mg PO Q12H PRN PRN Reason: Muscle Pain Losartan [Cozaar] 12.5 mg PO DAILY sitaGLIPtin [Januvia] 100 mg PO DAILY Metoprolol Tartrate [Lopressor] 25 mg PO DAILY Discharge Medication List Glimepiride [Amaryl] 1 mg PO DAILY 03/11/24 [History] Ketorolac 0.5% Ophth Soln [Acular 0.5%] 1 drops LEFT EYE DAILY 03/11/24 [History] Latanoprost [Latanoprost 0.005%] 1 drop BOTH EYES HS 03/11/24 [History] Pioglitazone [Actos] 45 mg PO DAILY 03/11/24 [History] calcitrioL [Rocaltrol] 0.25 mcg PO TH 03/11/24 [History] prednisoLONE ACETATE 1% OPHTH [Pred Forte 1%] 1 drop LEFT EYE DAILY 03/11/24 [History] Aspirin 81 mg PO DAILY #90 tab 05/05/24 [Rx] Atorvastatin [Lipitor] 80 mg PO HS tab 05/05/24 [Rx] Clopidogrel [Plavix] 75 mg PO DAILY #15 tab 05/05/24 [Rx] Losartan [Cozaar] 25 mg PO DAILY #60 tab 05/05/24 [Rx] Metoprolol Succinate (ER) [Toprol XL] 25 mg PO DAILY #60 tab 05/05/24 [Rx] Tiotropium 18 Mcg/Puff [Spiriva] 1 puff INHALATION DAILY #30 each 05/05/24 [Rx] amLODIPine [Norvasc] 5 mg PO DAILY #60 tab 05/05/24 [Rx] predniSONE [Deltasone] 40 mg PO DAILY #3 tab 05/05/24 [Rx] sitaGLIPtin [Januvia] 25 mg PO DAILY #60 tablet 05/05/24 [Rx] Follow up Appointment(s)/Referral(s): Luciano Cooney MD [Primary Care Provider] - 1-2 days Patient Instructions/Handouts: Ischemic Stroke (DC) Activity/Diet/Wound Care/Special Instructions: Please follow up with PCP Discharge Disposition: OTHER INSTITUTION NOT DEFINED
== END 2024-05-05 15:35 | DRG 65 ==
LOC: EC 18:03 → 1SOBS 20:25 → 3SCARD 23:50 → 5NMEDONC 05-03 17:33
PROVIDERS: ADMIT Internal Medicine; ATTEND Internal Medicine
DX: I63.89 Other cerebral infarction (principal); G81.94 Hemiplegia, unspecified affecting left nondominant side; J44.1 Chronic obstructive pulmonary disease with (acute) exacerbation; R29.706 NIHSS score 6; R13.10 Dysphagia, unspecified; N18.4 Chronic kidney disease, stage 4 (severe); R41.4 Neurologic neglect syndrome; E11.22 Type 2 diabetes mellitus with diabetic chronic kidney disease; I13.10 Hypertensive heart and chronic kidney disease without heart failure, with stage 1 through stage 4 chronic kidney disease, or unspecified chronic kidney disease; I65.21 Occlusion and stenosis of right carotid artery; J43.9 Emphysema, unspecified; G89.29 Other chronic pain; M54.50 Low back pain, unspecified; R47.1 Dysarthria and anarthria; R47.01 Aphasia; I44.0 Atrioventricular block, first degree; I25.10 Atherosclerotic heart disease of native coronary artery without angina pectoris; I25.5 Ischemic cardiomyopathy; S50.812A Abrasion of left forearm, initial encounter; Z79.84 Long term (current) use of oral hypoglycemic drugs; Z79.899 Other long term (current) drug therapy; Z95.1 Presence of aortocoronary bypass graft; W19.XXXA Unspecified fall, initial encounter
CPT/HCPCS: 36415; 70450; 70496; 70498; 70551; 71045; 71046; 74230; 80048; 80053; 80061; 82550; 82552; 83036; 83735; 84443; 85025; 85610; 85730; 93005; 93270; 93306; 93880; 94640; 96360; 96361; 96372; 99291